=== PATIENT | female | born 1990 | race Caucasian/White ===

== ENCOUNTER 2021-01-24 08:57 | Outpatient (REF) | payer OTHER, SELFPAY ==
[2021-01-24 11:16] LABS: Glucose Urine UA NEG (NEG); Leukocyte Esterase Urine NEG (NEG); Nitrite Urine NEG (NEG); PH 6.5 (5.0-8.0); Specific Gravity - Urine <= 1.005 (1.005-1.025); Urine Blood NEG (NEG); Urine Ketones NEG (NEG); Urine Protein NEG (NEG-TRACE)
[2021-01-24 11:22] LABS: Hematocrit 43.1 % (37-47); Hemoglobin 13.8 g/dl (12.0-16.0); Mean Corpuscular Hemoglobin 28.9 pg (27.0-33.0); Mean Corpuscular Volume 90.2 fL (80-98); Platelet Count 289 X10*3/uL (160-400); Red Blood Count 4.78 X10*6/uL (4.20-5.50); Red Cell Distribution Width 13.6 % (11.0-16.0); White Blood Count 7.4 X10*3/uL (4.8-10.8)
[2021-01-24 11:41] LABS: Alanine Aminotransferase 14 U/L (0-31); Albumin Level 4.5 g/dL (3.5-5.0); Alkaline Phosphatase 98 U/L (39-117); Anion Gap 14 (12-20); Aspartate Amino Transferase 17 U/L (5-31); Bilirubin Total 0.6 mg/dL (0.0-1.0); Blood Urea Nitrogen 9 mg/dL (9-16); Calcium 9.4 mg/dL (8.4-10.2); Carbon Dioxide 27 mmol/L (22-29); Chloride 105 mmol/L (96-108); Cholesterol 190 mg/dL; Estimated Glomerular Filt Rate > 60; Glucose Fasting 84 mg/dL (60-99); HDL Cholesterol 88 mg/dL; LDL Cholesterol Calculated 94 mg/dl; Magnesium 2.3 mg/dL (1.6-2.6); Potassium 4.6 mmol/L (3.3-5.1); Sodium 141 mmol/L (135-145); Total Protein 7.1 g/dL (6.5-8.0); Triglycerides 44 mg/dL
[2021-01-24 11:46] LABS: Appearance Urine CLEAR; Color Urine YELLOW
[2021-01-24 11:52] LABS: WBC Urine 0-2 /HPF (0-4)
[2021-01-24 11:53] LABS: Bacteria Urine TRACE /LPF; RBC Urine 0 /HPF (0)
[2021-01-24 11:56] LABS: TSH reflex Free T4 0.89 uIU/mL (0.32-4.0)
== END 2021-01-24 08:58 | disposition home or self-care (01) ==
LOC: HO.HMGCLDS 08:57
PROVIDERS: Visit Provider Internal Medicine
DX: Z00.00 Encounter for general adult medical examination without abnormal findings (principal); F41.9 Anxiety disorder, unspecified
CPT/HCPCS: 36415; 80053; 80061; 81001; 83735; 84443; 85027

== ENCOUNTER 2021-07-11 13:28 | Outpatient (REF) | payer OTHER, SELFPAY ==
[2021-07-11 15:05] LABS: Binax Now Covid-19 Ag Negative (Negative)
[2021-07-11 15:06] LABS: Binax Internal Control QC Valid
== END 2021-07-11 13:29 | disposition home or self-care (01) ==
LOC: HO.HMGCLDS 13:28
PROVIDERS: Visit Provider Internal Medicine
DX: Z20.822 Contact with and (suspected) exposure to COVID-19 (principal)
CPT/HCPCS: 36415; C9803

== ENCOUNTER 2022-05-20 14:54 | Outpatient (REF) | payer OTHER, SELFPAY ==
[2022-05-20 16:26] LABS: MANUAL DIFF FLAG NO
[2022-05-20 16:33] LABS: Basophils Absolute Auto 0.1 X10*3/uL (0.0-0.2); Basophils Percent Auto 0.4 % (0-2); Eosinophils Percent Auto 0.2 % (0-4); Hematocrit 44.3 % (37.0-47.0); Hemoglobin 14.6 g/dl (12.0-16.0); Imm Gran Abs Auto 0.05 X10*3/uL (0.00-0.03); Imm Gran Pct Auto 0.4 % (0.0-0.4); Lymphocytes Absolute Auto 1.8 X10*3/uL (1.2-4.9); Lymphocytes Percent Auto 14.5 % (20-40); Mean Corpuscular Hemoglobin 29.6 pg (27.0-33.0); Mean Corpuscular Volume 89.7 fL (80.0-98.0); Mean Platelet Volume 9.8 fL (9.4-12.3); Monocytes Absolute Auto 0.7 X10*3/uL (0.1-1.2); Monocytes Percent Auto 5.6 % (2-11); Neutrophils Absolute Auto 9.9 x10*3/uL (2.0-8.3); Neutrophils Percent Auto 78.9 % (45-73); Platelet Count 332 X10*3/uL (160-400); Red Blood Count 4.94 X10*6/uL (4.20-5.50); Red Cell Distribution Width 13.3 % (11.0-16.0); White Blood Count 12.6 X10*3/uL (4.8-10.8)
[2022-05-20 17:08] LABS: Alanine Aminotransferase 17 U/L (0-31); Albumin Level 4.9 g/dL (3.5-5.0); Alkaline Phosphatase 93 U/L (39-117); Anion Gap 17 (12-20); Aspartate Amino Transferase 19 U/L (5-31); Bilirubin Total 0.6 mg/dL (0.0-1.0); Blood Urea Nitrogen 15 mg/dL (9-16); Calcium 10.3 mg/dL (8.4-10.2); Carbon Dioxide 26 mmol/L (22-29); Chloride 101 mmol/L (96-108); Estimated Glomerular Filt Rate > 60; Glucose Random 78 mg/dL (60-115); Potassium 4.5 mmol/L (3.3-5.1); Sodium 139 mmol/L (135-145); Total Protein 7.6 g/dL (6.5-8.0)
[2022-05-20 17:23] LABS: TSH reflex Free T4 1.04 uIU/mL (0.32-4.0)
== END 2022-05-20 14:55 | disposition home or self-care (01) ==
LOC: HO.HMGCLDS 14:54
PROVIDERS: PCP Internal Medicine; Visit Provider Internal Medicine
DX: F41.9 Anxiety disorder, unspecified (principal); R63.4 Abnormal weight loss
CPT/HCPCS: 36415; 80053; 84443; 85025

== ENCOUNTER 2023-06-04 11:07 | Outpatient (AMB) | payer OTHER, SELFPAY ==
[2023-06-04 11:09] VITALS: BP 96/62; PULSE 69; O2SAT 100; BMI 25.3
--- NOTE | 2023-06-04 11:09 | MHC.PC.OV ---
Vital Signs 06/04/23 11:09 Height 5 ft 5.4 in Weight 154 lb BMI 25.3 BP 96/62 Blood Pressure Location Lt brachial Position Sitting Pulse 69 Pulse Source Pulse Oximeter Pulse Oximetry (%) 100 Oxygen Delivery Method Room Air Intake Visit Reasons: medication follow up Intake Note: Pt is here today for a follow up visit on medication. Pt would like a referral to Licensed Nurse Practitioner and GI specialist. Allergies No Known Allergies Allergy (Verified 06/04/23 11:10) Medication List - Last Reconciled 06/04/23 by Miriam Barakat MD bupropion HCl 300 mg PO QAM clindamycin phosphate 1% topical DAILY hydrocortisone valerate 0.2% 1 appl topical DAILY PRN tretinoin 0.025% appl topical BEDTIME Tobacco use date assessed: 06/04/23 Dental Screening Dental Screen Date: 06/04/23 Did you have a dental visit in the last 12 months?: No Did you have a dental problem in the last 6 months where you did not have access to dental care?: No Was dental information given to patient?: Patient declined HPI medication follow up HPI Details Pt presents for the follow-up of chronic depression anxiety is stable on bupropion. Patient follows up with a counselor. She reports episode of intermittent diarrhea usually after eating breakfast increase bloating on and off for the last 2 years. Patient has been under increased stress started a new job in July and also from her about 3 years ago. Patient lives with her parents. Patient denies weight loss nausea vomiting hematochezia or abdominal pain. She saw side panel padder and has been eating well-balanced diet. Patient did not notice any correlation between type of food consumed and diarrhea. [facility] Medical History Annual physical exam Anxiety Normal Pap smear Palpitations Family History Mother Mental health disorder Maternal Aunt Mental health disorder Maternal Uncle Mental health disorder Social History Housing: House Alcohol intake: current Patient Tobacco Use Status: Never used Tobacco e-Cigarette/Vaping Use: Never Used Second Hand Smoke Exposure: No service: No Current occupational status: employed and student Current occupation: [employer] Current occupational exposures/hazards: No Cognitive needs: No Hearing needs: No Vision needs: No Questionnaire PHQ-9 Over the last 2 weeks, how often have you been bothered by any of the following problems? 1. Little interest or pleasure in doing things: several days 2. Feeling down, depressed, or hopeless: several days 3. Trouble falling or staying asleep, or sleeping too much: several days 4. Feeling tired or having little energy: not at all 5. Poor appetite or overeating: not at all 6. Feeling bad about yourself - or that you are a failure or have let yourself or your family down: several days 7. Trouble concentrating on things, such as reading the newspaper or watching television: several days 8. Moving or speaking so slowly that other people could have noticed. Or the opposite - being so fidgety or restless that you have been moving around a lot more than usual: several days 9. Thoughts that you would be better off or of hurting yourself in some way: not at all Total score: 6 Depression Screening Interpretation: Negative Depression Screening Done: Yes 54048 - PHQ-9 Billing: Yes Source: Developed by Drs. Nico Marmolejo, Oralia Botello, Pierce Alvarez and colleagues, with an educational stacia from [employer]. Thrive Questionnaire Date Thrive assessed: 06/04/23 I am a: Patient What is your living situation today?: I have a steady place to live Within the past 12 months, did the food you bought not last and you didn't have the money to get more?: Never true Within the past 12 months, did you worry whether your food would run out before you got money to buy more?: Never true Do you have trouble paying for medicines?: No Do you have trouble getting transportation to medical appointments?: No Do you have trouble paying your heating and electricity bill?: No Do you have trouble taking care of your child, family member or friend?: No Do you have trouble with day-to-day activities such as bathing, preparing meals, shopping, managing finances, etc.?: No Are you currently unemployed and looking for a job?: No Are you interested in more education?: No Please select the resources that you would like help with: None AUDIT C Alcohol Use Questionnaire (AUDIT-C) 1. How often do you have a drink containing alcohol?: 4 or more times a week 2. How many drinks containing alcohol do you have on a typical day when you are drinking?: 1 or 2 3. How often do you have six or more drinks on one occasion?: Never Total Score: 4 ANANT-7 AMB Questionnaire ANANT-7 Date ANANT - 7 assessed: 06/04/23 Feeling nervous, anxious, or on edge: 1 = Several days Not being able to stop or control worryin = Not at all Worrying too much about different things: 0 = Not at all Trouble relaxin = Several days Being so restless that it is hard to sit still: 0 = Not at all Becoming easily annoyed or irritable: 2 = More than half the days Feeling afraid as if something awful might happen: 1 = Several days Total ANANT-7 score (0-4 normal; 5-9 mild; 10-14 moderate; 15-21 severe): 5 Source: Developed by Drs. Nico Marmolejo, Oralia Botello, Pierce Alvarez and colleagues, with an educational stacia from [employer]. Review of Systems Const All systems reviewed & are unremarkable except as noted in HPI and below Reports no additional complaints Eyes Reports no additional complaints ENT Reports no additional complaints Card Reports no additional complaints Resp Reports no additional complaints GI Reports no additional complaints Reports no additional complaints Physical exam (Primary Care) Vital Signs: Last Vital Signs Pulse 69 06/04/23 11:09 BP 96/62 06/04/23 11:09 Pulse Ox 100 06/04/23 11:09 Oxygen Delivery Method Room Air 06/04/23 11:09 BMI result Body Mass Index 25.3 Tobacco/Smoking Status: Tobacco use Status Tobacco use date assessed 06/04/23 06/04/23 11:12 Patient Tobacco Use Status Never used Tobacco 06/04/23 11:12 e-Cigarette/Vaping Use Never Used 06/04/23 11:09 Depression Screening Interpretation: Negative Thrive Assessment: Date of Thrive Assessment Date Thrive assessed 01/25/22 06/04/23 11:09 Const General: no acute distress HENMT Head: Yes normal to inspection Ears: hearing grossly normal bilaterally Face and sinus: Yes normal facial exam Mouth: Normal oral and palatal mucosa present Throat: Yes posterior oropharynx normal Neck Neck: Yes supple Resp Effort & Inspection: normal respiratory effort Auscultation: clear to auscultation bilaterally Cardio Rhythm: regular rhythm Heart sounds: S1 normal heart sound present and S2 normal heart sound present GI Inspection: Yes normal to inspection Palpation (GI): Soft to palpation Percussion: Yes normal to percussion Auscultation: normal bowel sounds Assessment and Plan Assessment & Plan (1) Annual physical exam: Code(s): Z00.00 - Encounter for general adult medical examination without abnormal findings (2) Diarrhea: Code(s): R19.7 - Diarrhea, unspecified Plan: Patient was advised to avoid processed foods and artificial sweeteners and start food diary. Patient was advised to try probiotics and stress management discussed with the patient (3) Anxiety: Comment: f/u therapist Code(s): F41.9 - Anxiety disorder, unspecified Plan: Continue bupropion Orders: Orders Comprehensive [place]. Panel Fast 4 Months R19.7 - Diarrhea, unspecified, R63.4 - Abnormal weight loss, Z00.00 - Encounter for general adult medical examination without abnormal findings Complete Blood Count Auto Diff 4 Months R19.7 - Diarrhea, unspecified, R63.4 - Abnormal weight loss, Z00.00 - Encounter for general adult medical examination without abnormal findings Immunoglobulins,IgG IgA IgM 4 Months R19.7 - Diarrhea, unspecified, R63.4 - Abnormal weight loss, Z00.00 - Encounter for general adult medical examination without abnormal findings Transglutaminase IgA 4 Months R19.7 - Diarrhea, unspecified, R63.4 - Abnormal weight loss, Z00.00 - Encounter for general adult medical examination without abnormal findings TSH reflex Free T4 4 Months R19.7 - Diarrhea, unspecified, R63.4 - Abnormal weight loss, Z00.00 - Encounter for general adult medical examination without abnormal findings Lipid Panel 4 Months R19.7 - Diarrhea, unspecified, R63.4 - Abnormal weight loss, Z00.00 - Encounter for general adult medical examination without abnormal findings Medications: Refilled bupropion HCl 300 mg PO QAM 90 tabs 3RF Coding Level of Care Code Est Pt Level 4 (19081) Diagnoses Annual physical exam Z00.00 Diarrhea R19.7 Anxiety F41.9
== END 2023-06-04 12:34 | disposition home or self-care (01) ==
PROVIDERS: PCP Internal Medicine; Visit Provider Internal Medicine
DX: Z00.00 Encounter for general adult medical examination without abnormal findings (principal); R19.7 Diarrhea, unspecified; F41.9 Anxiety disorder, unspecified
CPT/HCPCS: 99214

== ENCOUNTER 2023-09-17 13:02 | Outpatient (AMB) | payer OTHER, SELFPAY ==
--- NOTE | 2023-09-17 13:07 | A.OFFPC_ITS ---
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 Required: No Allergies No Known Allergies Allergy (Verified 06/04/23 11:10) Medication List - Last Reconciled 09/17/23 by YESSICA Pearson- clindamycin phosphate 1% topical DAILY hydrocortisone valerate 0.2% 1 appl topical DAILY PRN tretinoin 0.025% appl topical BEDTIME Tobacco use date assessed: 09/17/23 Dental Screening Dental Screen Date: 09/17/23 Did you have a dental visit in the last 12 months?: Yes Did you have a dental problem in the last 6 months where you did not have access to dental care?: No Was dental information given to patient?: Patient has dentist HPI HPI Comments History of Present Illness Details 33-year-old female with generalized anxi ety disorder, acne Surgery: plastic surgery R eye as child 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 Took Wellbutrin in the past. Stopped as she wondered if this worsened GI sx. GI issues described as diarrhea, acid reflux., has vomiting episodes after consumption of alcohol. Denies bloody vomit or stools. Has never had any GI surgery. Has not seen GI specialist at this time. Did see Professor Of Poultry Science. Trialed off diary for 2 weeks w/ no improvement. Did not f/u as she felt overwhelmed. Off Wellbutrin since june. This was initially started for ANANT. [place] happy while on this. Admits some improvement in anxiety less impending doom. Never been on any other meds. ANANT - easily annoyed, hard time with tasks, things are worse in the AM. Thinks about bad things that could happen. Does not want to start any medication at this time [facility] Medical History (Updated 09/17/23 @ 13:53 by Dinah Moulton, [facility]) Palpitations Normal Pap smear Anxiety Annual physical exam Family History Mother Mental health disorder Maternal Aunt Mental health disorder Maternal Uncle Mental health disorder Social History Housing: House Alcohol intake: current Patient Tobacco Use Status: Never used Tobacco e-Cigarette/Vaping Use: Never Used Second Hand Smoke Exposure: No service: No Current occupational status: employed and student Current occupation: [employer] Current occupational exposures/hazards: No Cognitive needs: No Hearing needs: No Vision needs: No Questionnaire PHQ-9 Over the last 2 weeks, how often have you been bothered by any of the following problems? 1. Little interest or pleasure in doing things: several days 2. Feeling down, depressed, or hopeless: several days 3. Trouble falling or staying asleep, or sleeping too much: not at all 4. Feeling tired or having little energy: not at all 5. Poor appetite or overeating: not at all 6. Feeling bad about yourself - or that you are a failure or have let yourself or your family down: not at all 7. Trouble concentrating on things, such as reading the newspaper or watching television: not at all 8. Moving or speaking so slowly that other people could have noticed. Or the opposite - being so fidgety or restless that you have been moving around a lot more than usual: not at all 9. Thoughts that you would be better off or of hurting yourself in some way: not at all Total score: 2 Depression Screening Interpretation: Positive Depression Screening Follow-up: Declines treatment Depression Screening Done: Yes Source: Developed by Drs. Nico Marmolejo, Oralia Botello, Pierce Alvarez and colleagues, with an educational stacia from [employer]. Thrive Questionnaire Date Thrive assessed: 09/17/23 I am a: Patient What is your living situation today?: I have a steady place to live Within the past 12 months, did the food you bought not last and you didn't have the money to get more?: Never true Within the past 12 months, did you worry whether your food would run out before you got money to buy more?: Never true Do you have trouble paying for medicines?: No Do you have trouble getting transportation to medical appointments?: No Do you have trouble paying your heating and electricity bill?: No Do you have trouble taking care of your child, family member or friend?: No Do you have trouble with day-to-day activities such as bathing, preparing meals, shopping, managing finances, etc.?: No Are you currently unemployed and looking for a job?: No Are you interested in more education?: No Please select the resources that you would like help with: None THRIVE Score: 0 AUDIT C Alcohol Use Questionnaire (AUDIT-C) 1. How often do you have a drink containing alcohol?: 2-3 times a week 2. How many drinks containing alcohol do you have on a typical day when you are drinking?: 3 or 4 3. How often do you have six or more drinks on one occasion?: Never Total Score: 4 Score Reviewed/Action Taken: Yes ANANT-7 AMB Questionnaire ANANT-7 Date ANANT - 7 assessed: 06/04/23 Feeling nervous, anxious, or on edge: 1 = Several days Not being able to stop or control worryin = Several days Worrying too much about different things: 0 = Not at all Trouble relaxin = Not at all Being so restless that it is hard to sit still: 0 = Not at all Becoming easily annoyed or irritable: 0 = Not at all Feeling afraid as if something awful might happen: 0 = Not at all Total ANANT-7 score (0-4 normal; 5-9 mild; 10-14 moderate; 15-21 severe): 2 Source: Developed by Drs. Nico Marmolejo, Oralia Botello, Pierce Alvarez and colleagues, with an educational stacia from [employer]. ANANT-7 Assessment Billing ANANT-7 Assessment Tool: ANANT-7 Assessment 72438 Review of Systems Const All systems reviewed & are unremarkable except as noted in HPI and below Physical exam (Primary Care) Vital Signs: Last Vital Signs Pulse 75 09/17/23 13:08 BP 108/70 09/17/23 13:08 Pulse Ox 100 09/17/23 13:08 Oxygen Delivery Method Room Air 09/17/23 13:08 BMI result Body Mass Index 26.5 Tobacco/Smoking Status: Tobacco use Status Tobacco use date assessed 09/17/23 09/17/23 13:13 Patient Tobacco Use Status Never used Tobacco 09/17/23 13:07 e-Cigarette/Vaping Use Never Used 09/17/23 13:07 PHQ-9: PHQ-9 Score PHQ-9: Total score 2 09/17/23 13:35 Depression Screening Interpretation: Positive Depression Screening Follow-up: Declines treatment Thrive Assessment: Date of Thrive Assessment Date Thrive assessed 09/17/23 09/17/23 13:13 Const Other: AWAKE ALERT NAD SCLERAS NONICTERIC BILAT MMM RRR LS CTAB ABD SOFT, NONTENDER, BS X 4 QUADS, NO HEPATOSPLENOMEGALY MOOD AND AFFECT APPROPRIATE Assessment and Plan Assessment & Plan (1) Diarrhea: Comment: REFER TO GI FOR FURTHER EVAL AND TX WISHES TO SEE JOSE LONG AT [facility] ADVISED TO SEND ME MESSAGE ON PORTAL IF SHE CHANGES HER MIND Code(s): R19.7 - Diarrhea, unspecified Qualifiers: Diarrhea type: functional diarrhea Qualified Code(s): K59.1 - Functional diarrhea (2) ANANT (generalized anxiety disorder): Comment: ACTIVE W/ THERAPIST WAS ON WELLBUTRIN 300MG IN THE PAST, STOPPED TAKING 06/2023 DIDNT FIND IT TOO EFFECTIVE DECLINES MEDICATIONS AT THIS TIME Code(s): F41.1 - Generalized anxiety disorder Plan: Total time spent caring for the patient today was 45 minutes. This includes time spent before the visit reviewing the chart, time spent during the visit, and time spent after the visit on documentation This note is constructed using voice recognition software. While every effort has been made to ensure accuracy in panman, still errors may have been included Sometimes, these errors may affect the content or meaning of the given sentence . Plan RTO IN 3-4 MONTHS FOR CPE, SOONER NEEDED Orders: Referrals Gastroenterology Referral R19.7 - Diarrhea, unspecified Coding Level of Care Code Est Pt Level 5 (33176) Diagnoses Functional diarrhea K59.1 Diarrhea type: functional diarrhea ANANT (generalized anxiety disorder) F41.1 Additional Codes ANANT-7 Assessment Billing - ANANT-7 Assessment Tool: ANANT-7 Assessment 58005 ([id number])
[2023-09-17 13:08] VITALS: BP 108/70; PULSE 75; O2SAT 100; BMI 26.5
== END 2023-09-17 13:46 | disposition home or self-care (01) ==
PROVIDERS: PCP Nurse Practitioner Family; Visit Provider Nurse Practitioner Family
DX: K59.1 Functional diarrhea (principal); F41.1 Generalized anxiety disorder
CPT/HCPCS: 99215

== ENCOUNTER 2024-01-28 11:47 | Outpatient (AMB) | payer OTHER, SELFPAY ==
--- NOTE | 2024-01-28 11:49 | MHC.PC.OV ---
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 Is last menstrual period known: Yes Last menstrual period: 01/27/24 Post menopausal: No Patient : No Allergies No Known Allergies Allergy (Verified 01/28/24 11:59) Medication List - Last Reconciled 01/28/24 by Dinah Moulton, CHILD CARE GIVER- bupropion HCl XL (Wellbutrin XL) 300 mg PO QAM clindamycin phosphate 1% topical DAILY hydrocortisone valerate 0.2% 1 appl topical DAILY PRN tretinoin 0.025% appl topical BEDTIME Tobacco use date assessed: 01/28/24 Dental Screening Dental Screen Date: 01/28/24 Did you have a dental visit in the last 12 months?: No Did you have a dental problem in the last 6 months where you did not have access to dental care?: No Was dental information given to patient?: Patient declined HPI HPI Comments History of Present Illness Details 33-year-old female with generalized anxiety disorder, acne, functional chronic diarrhea Surgery: plastic surgery R eye as child 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 Derm [facility] 05/20/2022 normal CBC, normal CMP, normal TSH Here today for CPE For the GI referral: i dont have the consult note; she tells me she did not do the stool sample testing; she was given RX for acid reflux, however did not start as felt like it was related to taking too much NSAIDs which she has since reduced and this helped her. has been tracking fiber and feels she eats enough fiber. relates GI sx to stress. no worse since last visit. has no plans to f/u with GI @ this time. Started back on wellbutrin for her chronic worry/anxiety, On 300mg since October. Admits this has helped. feels happier. however cont w/ daily anxiety. discussed using other meds to help her control her anxiety. has never been on anything other than the wellbutrin, worries about wt gain with meds. denies self medication. Bruises really easily; in regards to taking NSAIDs; Vertigo started this summer. was told to tx w/ Advil. So takes for lots of different things. Again has reduced NSAID use and has had improvement in bruising. Eyes - overdue for eye exam, wears glasses. Does not need referral Skin - other than bruising, active w/ Derm. Reports UTD on skin ca screen. Sleep - ok Diet - could do better. EXAM: General: Well developed, well nourished, in no acute distress. Appears stated age. Head: Normocephalic, atraumatic. Eyes: Pupils are equal, round and reactive to light and accommodation. Conjunctivae are clear. Vision grossly normal. Ears: TMs clear AU, EACS WNL Nose: Patent, without discharge. Mouth: There are no ulcers or lesions noted. No inflammation, no post nasal drip, no plaques nor exudates. Neck: Supple, no adenopathy or thyromegaly. Lungs: Clear to auscultation bilaterally. No rales, rhonchi or wheeze noted. Good air flow in all glaser. Heart: Regular rate and rhythm. No murmurs, click, rubs or gallops are noted. Abdomen: Bowel sounds present in all quadrants. The abdomen is soft, nontender, with no masses or organomegaly noted. No hernias are noted. Musculoskeletal: Joints are nontender, without swelling, redness, or effusions. Range of motion is observed to be normal. Pulses: Peripheral pulses are equal and palpable bilaterally. Extremities: No clubbing, cyanosis nor edema is noted. Neurologic: Gait and station normal. Cranial Nerves 2-12 intact. Motor strength grossly symmetrical and intact. No sensory loss. Balance normal. Skin: No rashes, ulcers, or lesions noted. Turgor is good. Skin color is good. Hair and nails are without abnormalities. Psych: Normal eye contact, affect and mood appropriate, and normal interactions. Patient is alert and appropriate to context. Plan Screening labs today, all WNL: Plan start buspar 7.5 mg BID to help w/ anxiety. RTO 6-8 weeks to fu cont wellbutrin reduce NSAID use Tdap today cont care w specialists. [facility] Medical History (Updated 01/28/24 @ 13:43 by Dinah Moulton, [facility]) Palpitations Normal Pap smear Anxiety Annual physical exam Family History Mother Mental health disorder Maternal Aunt Mental health disorder Maternal Uncle Mental health disorder Social History Housing: House Alcohol intake: current Patient Tobacco Use Status: Never used Tobacco e-Cigarette/Vaping Use: Never Used Second Hand Smoke Exposure: No service: No Current occupational status: employed and student Current occupation: [employer] Current occupational exposures/hazards: No Cognitive needs: No Hearing needs: No Vision needs: No Female Reproductive History Menstrual Date of last menstrual period: 01/27/24 Questionnaire PHQ-9 Over the last 2 weeks, how often have you been bothered by any of the following problems? 1. Little interest or pleasure in doing things: several days 2. Feeling down, depressed, or hopeless: not at all 3. Trouble falling or staying asleep, or sleeping too much: not at all 4. Feeling tired or having little energy: not at all 5. Poor appetite or overeating: several days 6. Feeling bad about yourself - or that you are a failure or have let yourself or your family down: several days 7. Trouble concentrating on things, such as reading the newspaper or watching television: nearly every day 8. Moving or speaking so slowly that other people could have noticed. Or the opposite - being so fidgety or restless that you have been moving around a lot more than usual: several days 9. Thoughts that you would be better off or of hurting yourself in some way: not at all Total score: 7 Depression Screening Interpretation: Positive Depression Screening Follow-up: Existing condition and In treatment Depression Screening Done: Yes 04156 - PHQ-9 Billing: Yes Source: Developed by Drs. Nico L. JaleelOralia soto, Pierce Alvarez and colleagues, with an educational stacia from [employer]. Thrive Questionnaire Date Thrive assessed: 01/28/24 I am a: Patient What is your living situation today?: I have a steady place to live Within the past 12 months, did the food you bought not last and you didn't have the money to get more?: Never true Within the past 12 months, did you worry whether your food would run out before you got money to buy more?: Never true Do you have trouble paying for medicines?: No Do you have trouble getting transportation to medical appointments?: No Do you have trouble paying your heating and electricity bill?: No Do you have trouble taking care of your child, family member or friend?: No Do you have trouble with day-to-day activities such as bathing, preparing meals, shopping, managing finances, etc.?: No Are you currently unemployed and looking for a job?: No Are you interested in more education?: No Please select the resources that you would like help with: None Currently or been in a relationship where the following occur: No concerns reported THRIVE Score: 0 AUDIT C Alcohol Use Questionnaire (AUDIT-C) 1. How often do you have a drink containing alcohol?: 4 or more times a week 2. How many drinks containing alcohol do you have on a typical day when you are drinking?: 3 or 4 3. How often do you have six or more drinks on one occasion?: Weekly Total Score: 8 Score Reviewed/Action Taken: Yes ANANT-7 AMB Questionnaire ANANT-7 Date ANANT - 7 assessed: 01/28/24 Feeling nervous, anxious, or on edge: 2 = More than half the days Not being able to stop or control worryin = Not at all Worrying too much about different things: 1 = Several days Trouble relaxin = Not at all Being so restless that it is hard to sit still: 0 = Not at all Becoming easily annoyed or irritable: 3 = Nearly every day Feeling afraid as if something awful might happen: 2 = More than half the days Total ANANT-7 score (0-4 normal; 5-9 mild; 10-14 moderate; 15-21 severe): 8 Source: Developed by Oralia Deal Kurt Kroenke and colleagues, with an educational stacia from [employer]. ANANT-7 Assessment Billing ANANT-7 Assessment Tool: ANANT-7 Assessment 54507 Physical exam (Primary Care) Vital Signs: Last Vital Signs Temp 97.5 F 01/28/24 11:54 Pulse 67 01/28/24 11:54 Resp 16 01/28/24 11:54 BP 102/72 01/28/24 11:54 Pulse Ox 100 01/28/24 11:54 Oxygen Delivery Method Room Air 01/28/24 11:54 BMI result Body Mass Index 27.1 BMI Assessment/Plan discussion: High BMI High, discussed plan: lifestyle Tobacco/Smoking Status: Tobacco use Status Tobacco use date assessed 01/28/24 01/28/24 12:01 Patient Tobacco Use Status Never used Tobacco 01/28/24 11:51 e-Cigarette/Vaping Use Never Used 01/28/24 11:51 PHQ-9: PHQ-9 Score PHQ-9: Total score 7 01/28/24 13:44 Depression Screening Interpretation: Positive Depression Screening Follow-up: Existing condition and In treatment Thrive Assessment: Date of Thrive Assessment Date Thrive assessed 01/28/24 01/28/24 12:04 Currently or been in a relationship where the following occur: No concerns reported Immunizations Boostrix Tdap 2.5 Lf unit-8 mcg-5 Lf/0.5 mL intramuscular syringe Performing Provider: HARLEY Pearson Performing Location[place] [facility] Administered by: Chrissy Bass RN on 01/28/24 12:52 Dose Route Admin Location Dispensed Lot Number Expiration Date [facility] Surgeon Partner 0.5 mL IM Left Deltoid 0.5 mL [id number] 02/12/26 [id number] Vindi VIS Given Date VIS Provided VIS Publication Date 01/28/24 Single Vaccine 21 Eligibility Eligibility Date Funding Source Not [facility] Eligible 01/28/24 Private Assessment and Plan Assessment & Plan (1) Encounter for general adult medical examination without abnormal findings: Code(s): Z00.00 - Encounter for general adult medical examination without abnormal findings (2) ANANT (generalized anxiety disorder): Comment: ACTIVE W/ THERAPIST Code(s): F41.1 - Generalized anxiety disorder (3) Laboratory exam ordered as part of routine general medical examination: Code(s): Z00.00 - Encounter for general adult medical examination without abnormal findings Orders: Orders Hemoglobin A1c Today F41.1 - Generalized anxiety disorder, Z00.00 - Encounter for general adult medical examination without abnormal findings IRON PROFILE Today F41.1 - Generalized anxiety disorder, Z00.00 - Encounter for general adult medical examination without abnormal findings LDL Cholesterol Direct Today F41.1 - Generalized anxiety disorder, Z00.00 - Encounter for general adult medical examination without abnormal findings TSH reflex Free T4 Today F41.1 - Generalized anxiety disorder, Z00.00 - Encounter for general adult medical examination without abnormal findings Complete Blood Count no Diff Today F41.1 - Generalized anxiety disorder, Z00.00 - Encounter for general adult medical examination without abnormal findings Ferritin Today F41.1 - Generalized anxiety disorder, Z00.00 - Encounter for general adult medical examination without abnormal findings TDaP Immunization Today Z23 - Encounter for immunization Comprehensive Met. Panel Today F41.1 - Generalized anxiety disorder, Z00.00 - Encounter for general adult medical examination without abnormal findings Vitamin B12 and Folate Today F41.1 - Generalized anxiety disorder, Z00.00 - Encounter for general adult medical examination without abnormal findings Medications: New buspirone 7.5 mg PO BID 60 tabs 2RF Patient Instructions: Health screenings for women You should visit your health care provider from time to time, even if you are healthy. The purpose of these visits is to: Screen for medical issues Assess your risk for future medical problems Encourage a healthy lifestyle Update vaccinations and other preventive care services Help you get to know your provider in case of an illness Information Even if you feel fine, you should still see your provider for regular checkups. These visits can help you avoid problems in the future. For example, the only way to find out if you have high blood pressure is to have it checked regularly. High blood sugar and high cholesterol levels also may not have any symptoms in the early stages. A simple blood test can check for these conditions. There are specific times when you should see your provider or receive specific health screenings. The [place] Preventive Services Task Force publishes a list of recommended screenings. Below are screening guidelines for women ages 18 to 39. BLOOD PRESSURE SCREENING Your blood pressure should be checked at least once every 3 to 5 years if: Your blood pressure is in the normal range (top number less than 120 mm Hg and bottom number less than 80 mm Hg) You don't have risk factors for high blood pressure Ask your provider if you need your blood pressure checked more often if: The top number is 120 to 129 mm Hg or the bottom number is 70 to 79 mm Hg You have diabetes, heart disease, kidney problems, are overweight, or have certain other health conditions You have a first-degree relative with high blood pressure You are Black You had high blood pressure during a If the top number is 130 mm Hg or greater or the bottom number is 80 mm Hg or greater, this is considered stage 1 hypertension. Schedule an appointment with your provider to learn how you can reduce your blood pressure. Watch for blood pressure screenings in your area. Ask your provider if you can stop in to have your blood pressure checked. BREAST CANCER SCREENING Experts do not agree about the benefits of breast self-exams in finding breast cancer or saving lives. Talk to your provider about what is best for you. A screening mammogram is not recommended for most women under age 40. Your provider may discuss and recommend mammograms, MRI scans, or ultrasounds if you have an increased risk for breast cancer, such as: A mother or sister who had breast cancer at a young age (most often starting screening earlier than the age the close relative was diagnosed) You carry a high-risk genetic marker CERVICAL CANCER SCREENING Cervical cancer screening should start at age 21 years unless your provider advises otherwise. After the first test: Women ages 21 through 29 should have a Pap test every 3 years. Exoprts do not agree on whether HPV testing is recommended for this age group. Women ages 30 through 65 should be screened with either a Pap test every 3 years or the HPV test every 5 years or both tests every 5 years (called cotesting ). Women who have been treated for precancer (cervical dysplasia) should continue to have Pap tests for 20 years after treatment or until age 65, whichever is longer. If you have had your uterus and cervix removed (total hysterectomy), and you have not been diagnosed with cervical cancer or precancer (high grade cervical neoplasia), you do not need cervical cancer screening. CHOLESTEROL SCREENING Cholesterol screening should begin at: Age 45 for women with no known risk factors for coronary heart disease Age 20 for women with known risk factors for coronary heart disease Repeat cholesterol screening should take place: Every 5 years for women with normal cholesterol levels More often if changes occur in lifestyle (including weight gain and diet) More often if you have diabetes, heart disease, kidney problems, or certain other conditions DIABETES SCREENING You should be screened for diabetes starting at age 35 and then repeated every 3 years if you have no risk factors for diabetes. Screening may need to start earlier and be repeated more often if you have other risk factors for diabetes, such as: You have a first degree relative with diabetes. You are overweight or have obesity. You have high blood pressure, prediabetes, or a history of heart disease. Screening for diabetes should be done if you are planning to become and you are overweight and have other risk factors such as high blood pressure. DENTAL EXAM Go to the dentist once or twice every year for an exam and cleaning. Your dentist will evaluate if you need more frequent visits. EYE EXAM Have an eye exam every 5 to 10 years before age 40. If you have vision problems, have an eye exam every 2 years or more often if recommended by your provider. You should have an eye exam that includes an examination of your retina (back of your eye) at least every year if you have diabetes. IMMUNIZATIONS Commonly needed vaccines include: Flu shot: get one every year. COVID-19 vaccine: ask your provider what is best for you. Tetanus-diphtheria and acellular pertussis (Tdap) vaccine: have one at or after age 19 as one of your tetanus-diphtheria vaccines if you did not receive it as an adolescent. Tetanus-diphtheria: have a booster (or Tdap) every 10 years. Varicella vaccine: receive 2 doses if you never had chickenpox or the varicella vaccine. Hepatitis B vaccine: receive 2, 3, or 4 doses, depending on your exact circumstances. Measles, mumps, and rubella (MMR) vaccine: receive 1 to 2 doses if you are not already immune to MMR. Your provider can tell you if you are immune. Ask your provider about the human papillomavirus (HPV) vaccine if: You have not received the HPV vaccine in the past You have not completed the full vaccine series (you should catch up on this shot) Ask your provider if you should receive other immunizations if you have certain health problems that increase your risk for some diseases such as pneumonia. INFECTIOUS DISEASE SCREENING Women who are sexually active should be screened for chlamydia and gonorrhea up until age 25. Women 25 years and older should be screened for chlamydia and gonorrhea if at high risk. Screening for hepatitis C: All adults ages 18 to 79 should get a one-time test for hepatitis C. people should be screened at every . Screening for human immunodeficiency virus (HIV): All people ages 15 to 65 should get a one-time test for HIV. Depending on your lifestyle and medical history, you may also need to be screened for infections such as syphilis and HIV, as well as other infections. PHYSICAL EXAM All adults should visit their provider from time to time, even if they are healthy. The purpose of these visits is to: Screen for disease Assess your risk of future medical problems Encourage a healthy lifestyle Update your vaccinations and other preventive care services Maintain a relationship with a provider in case of an illness Your height, weight, and BMI should be checked at every exam. During your exam, your provider may ask you about: Depression and anxiety Diet and exercise Alcohol and tobacco use Safety issues, such as using seat belts, smoke detectors, and intimate partner violence Your medicines and risk for interactions SKIN SELF-EXAM Your provider may check your skin for signs of skin cancer, especially if you're at high risk, such as if you: Have had skin cancer before Have close relatives with skin cancer Have a weakened immune system OTHER SCREENING Talk with your provider about colon cancer screening if you have a strong family history of colon cancer or polyps, or if you have had inflammatory bowel disease or polyps yourself. Routine bone density screening of women under 40 is not recommended. Coding Level of Care Code Est Pt Prev Care 18-39y(84279) Diagnoses Encounter for general adult medical examination without abnormal findings Z00.00 ANANT (generalized anxiety disorder) F41.1 Laboratory exam ordered as part of routine general medical examination Z00.00 Additional Codes ANANT-7 Assessment Billing - ANANT-7 Assessment Tool: ANANT-7 Assessment 17745 ([id number])
[2024-01-28 11:54] VITALS: BP 102/72; PULSE 67; RESP 16; TEMP 36.4; O2SAT 100; BMI 27.1
== END 2024-01-28 12:50 | disposition home or self-care (01) ==
PROVIDERS: PCP Nurse Practitioner Family; Visit Provider Nurse Practitioner Family
DX: Z00.00 Encounter for general adult medical examination without abnormal findings (principal); F41.1 Generalized anxiety disorder; Z23 Encounter for immunization
CPT/HCPCS: 90471; 90715; 99395

== ENCOUNTER 2024-01-28 13:00 | Outpatient (REF) | payer OTHER, SELFPAY ==
[2024-01-28 14:52] LABS: Hematocrit 42.5 % (37.0-47.0); Hemoglobin 14.4 g/dl (12.0-16.0); Mean Corpuscular HGB Conc 33.9 g/dl (31.0-35.0); Mean Corpuscular Hemoglobin 30.6 pg (27.0-33.0); Mean Corpuscular Volume 90.4 fL (80.0-98.0); Mean Platelet Volume 9.8 fL (9.4-12.3); Platelet Count 307 X10*3/uL (160-400); Red Cell Distribution Width 13.1 % (11.0-16.0); White Blood Count 6.5 X10*3/uL (4.8-10.8)
[2024-01-28 15:01] LABS: Estimated Average Glucose 88 mg/dL; Hemoglobin A1c % 4.7 % (<6.0)
[2024-01-28 15:44] LABS: Alanine Aminotransferase 18 U/L (0-31); Albumin Level 4.7 g/dL (3.5-5.0); Alkaline Phosphatase 100 U/L (39-117); Anion Gap 16 (12-20); Aspartate Amino Transferase 19 U/L (5-31); Bilirubin Total 0.7 mg/dL (0.0-1.0); Blood Urea Nitrogen 14 mg/dL (9-16); Calcium 9.8 mg/dL (8.4-10.2); Carbon Dioxide 24 mmol/L (22-29); Chloride 105 mmol/L (96-108); Estimated Glomerular Filt Rate > 60; Glucose Random 81 mg/dL (60-115); Iron 146 mcg/dL (30-160); Percent Iron Saturation 44 % (15-50); Potassium 3.6 mmol/L (3.3-5.1); Sodium 141 mmol/L (135-145); Total Iron Binding Capacity 333 mcg/dL (228-428); Total Protein 7.3 g/dL (6.5-8.0); Unsaturated Iron Binding 187 ug/dL
[2024-01-28 15:58] LABS: Ferritin 31 ng/mL (10-122); TSH reflex Free T4 1.01 uIU/mL (0.32-4.0)
[2024-01-28 16:07] LABS: Folate 11.1 ng/mL (> or = 4.0); Vitamin B12 440 pg/mL (200-900)
[2024-01-29 11:54] LABS: LDL Cholesterol Direct 80 mg/dL (<100)
== END 2024-01-28 13:01 | disposition home or self-care (01) ==
LOC: HO.WFDLDS 13:00
PROVIDERS: Visit Provider Nurse Practitioner Family
DX: Z00.00 Encounter for general adult medical examination without abnormal findings (principal); F41.1 Generalized anxiety disorder
CPT/HCPCS: 36415; 80053; 82607; 82728; 82746; 83036; 83540; 83721; 84443; 85027

== ENCOUNTER 2024-03-16 09:56 | Outpatient (AMB) | payer OTHER, SELFPAY ==
--- NOTE | 2024-03-16 09:57 | A.OFFPC_ITS ---
Vital Signs 03/16/24 10:00 03/16/24 10:34 Height 5 ft 4 in Weight 167 lb 4 oz BMI 28.7 BP 118/68 Blood Pressure Location Rt brachial Position Sitting Respiration 15 Pulse 100 80 Pulse Source Pulse Oximeter Auscultation Pulse Oximetry (%) 98 Oxygen Delivery Method Room Air Intake Visit Reasons: 6-8 weeks 30 min fu BUSPAR Intake Note: follow up on meds Allergies No Known Allergies Allergy (Verified 03/16/24 10:05) Medication List - Last Reconciled 03/16/24 by Dinah Moulton, GSE MECHANIC- bupropion HCl XL (Wellbutrin XL) 300 mg PO QAM buspirone 7.5 mg PO BID clindamycin phosphate 1% topical DAILY hydrocortisone valerate 0.2% 1 appl topical DAILY PRN tretinoin 0.025% appl topical BEDTIME Tobacco use date assessed: 03/16/24 Dental Screening Dental Screen Date: 03/16/24 Did you have a dental visit in the last 12 months?: Yes Did you have a dental problem in the last 6 months where you did not have access to dental care?: No Was dental information given to patient?: Patient has dentist HPI HPI Comments History of Present Illness Details 33-year-old female with generalized anxi ety disorder, acne, functional chronic diarrhea Here today to fu on start of Buspar 7.5 mg po BID Feb/Mar are not good months for her, PTSD from past. Summer was good until February. Feb was not as busy, so lead her to think about different things. Taking each morning but forgets to take at night. On the days she takes twice per day does not see a difference in anxiety sx. Feels a litte more chill when with people. yesterday felt anxious; no trigger. on edge . Did positive affirmations to help control the anxiety. Cont to take wellbutrin. Wonders if she has aDHD, always thinking about different things, mind going in different places. Adult ASRS-v1 was done today, showed scattered results not c/w ADHD. Did restart counseling, has had 2 sessions, helpful so far. Exam: Awake, alert NAD RRR LS CTAB Mood and affect appropriate Plan Cont wellbutrin 300mg. Increase buspirone from 7.5mg po BID to 15mg QD. USe 7.5 PRN for breakthrough anxiety Cont counseling RTO in 6-8 weeks to fu, sooner as needed. Could consider increasing Wellbutrin at next OV to help w the inattentive sx she has. This note is constructed using voice recognition software. While every effort has been made to ensure accuracy in mill beam fitter, still errors may have been included Sometimes, these errors may affect the content or meaning of the given sentence . Total time spent caring for the patient today was 30 minutes. This includes time spent before the visit reviewing the chart, time spent during the visit, and time spent after the visit on documentation [facility] Medical History (Updated 01/28/24 @ 13:43 by Dinah Moulton, [facility]) Palpitations Normal Pap smear Anxiety Annual physical exam Family History Mother Mental health disorder Maternal Aunt Mental health disorder Maternal Uncle Mental health disorder Social History Housing: House Alcohol intake: current Patient Tobacco Use Status: Never used Tobacco e-Cigarette/Vaping Use: Never Used Second Hand Smoke Exposure: No service: No Current occupational status: employed and student Current occupation: [employer] Current occupational exposures/hazards: No Cognitive needs: No Hearing needs: No Vision needs: No Questionnaire PHQ-9 Over the last 2 weeks, how often have you been bothered by any of the following problems? 1. Little interest or pleasure in doing things: not at all 2. Feeling down, depressed, or hopeless: not at all 3. Trouble falling or staying asleep, or sleeping too much: not at all 4. Feeling tired or having little energy: not at all 5. Poor appetite or overeating: not at all 6. Feeling bad about yourself - or that you are a failure or have let yourself or your family down: several days 7. Trouble concentrating on things, such as reading the newspaper or watching television: nearly every day 8. Moving or speaking so slowly that other people could have noticed. Or the opposite - being so fidgety or restless that you have been moving around a lot more than usual: not at all 9. Thoughts that you would be better off or of hurting yourself in some way: not at all Total score: 4 82132 - PHQ-9 [place]: Yes Source: Developed by Drs. Nico Marmolejo, Pierce Lauren and colleagues, with an educational stacia from [employer]. Thrive Questionnaire Date Thrive assessed: 03/16/24 I am a: Patient What is your living situation today?: I have a steady place to live Within the past 12 months, did the food you bought not last and you didn't have the money to get more?: Never true Within the past 12 months, did you worry whether your food would run out before you got money to buy more?: Never true Do you have trouble paying for medicines?: No Do you have trouble getting transportation to medical appointments?: No Do you have trouble paying your heating and electricity bill?: No Do you have trouble taking care of your child, family member or friend?: No Do you have trouble with day-to-day activities such as bathing, preparing meals, shopping, managing finances, etc.?: No Are you currently unemployed and looking for a job?: No Are you interested in more education?: No Please select the resources that you would like help with: None THRIVE Score: 0 ANANT-7 AMB Questionnaire ANANT-7 Date ANANT - 7 assessed: 03/16/24 Feeling nervous, anxious, or on edge: 3 = Nearly every day Not being able to stop or control worryin = Not at all Worrying too much about different things: 0 = Not at all Trouble relaxin = Several days Being so restless that it is hard to sit still: 1 = Several days Becoming easily annoyed or irritable: 3 = Nearly every day Feeling afraid as if something awful might happen: 2 = More than half the days Total ANANT-7 score (0-4 normal; 5-9 mild; 10-14 moderate; 15-21 severe): 10 Source: Developed by Drs. Nico Marmolejo, Pierce Lauren and colleagues, with an educational stacia from [employer]. ANANT-7 Assessment Billing ANANT-7 Assessment Tool: ANANT-7 Assessment 20251 Physical exam (Primary Care) Vital Signs: Last Vital Signs Pulse 100 03/16/24 10:00 Resp 15 03/16/24 10:00 BP 118/68 03/16/24 10:00 Pulse Ox 98 03/16/24 10:00 Oxygen Delivery Method Room Air 03/16/24 10:00 BMI result Body Mass Index 28.7 Tobacco/Smoking Status: Tobacco use Status Tobacco use date assessed 01/28/24 01/28/24 12:01 Patient Tobacco Use Status Never used Tobacco 01/28/24 11:51 e-Cigarette/Vaping Use Never Used 01/28/24 11:51 Thrive Assessment: Date of Thrive Assessment Date Thrive assessed 01/28/24 01/28/24 12:04 Assessment and Plan Assessment & Plan (1) ANANT (generalized anxiety disorder): Comment: ACTIVE W/ THERAPIST Code(s): F41.1 - Generalized anxiety disorder (2) Inattention: Code(s): R41.840 - Attention and concentration deficit Medications: New buspirone 15 mg PO ONCE 90 tabs 0RF Coding Level of Care Code Est Pt Level 4 (43648) Diagnoses ANANT (generalized anxiety disorder) F41.1 Inattention R41.840 Additional Codes ANANT-7 Assessment Billing - ANANT-7 Assessment Tool: ANANT-7 Assessment 71877 ([id number])
[2024-03-16 10:00] VITALS: BP 118/68; PULSE 100; RESP 15; O2SAT 98; BMI 28.7
[2024-03-16 10:34] VITALS: PULSE 80
== END 2024-03-16 10:25 | disposition home or self-care (01) ==
PROVIDERS: PCP Nurse Practitioner Family; Visit Provider Nurse Practitioner Family
DX: R41.840 Attention and concentration deficit (principal); F41.1 Generalized anxiety disorder
CPT/HCPCS: 96127; 99214

== ENCOUNTER 2024-03-26 13:35 | Outpatient (AMB) | payer OTHER, SELFPAY ==
--- NOTE | 2024-03-26 13:31 | A.OFFPC_ITS ---
Vital Signs 03/26/24 15:51 Pulse 88 Pulse Source Pulse Oximeter Temp 98.2 F Temp Source Temporal Artery Scan Pulse Oximetry (%) 98 Oxygen Delivery Method Room Air Intake Visit Reasons: Sore throat, Congestion, easily winded Intake Note: Sore throat, congestion, easily winded. Allergies No Known Allergies Allergy (Verified 03/26/24 15:51) Medication List - Last Reconciled 03/26/24 by Dinah Moulton, SENIOR MERCHANDISER- bupropion HCl XL (Wellbutrin XL) 300 mg PO QAM buspirone 15 mg PO ONCE buspirone 7.5 mg PO BID clindamycin phosphate 1% topical DAILY hydrocortisone valerate 0.2% 1 appl topical DAILY PRN tretinoin 0.025% appl topical BEDTIME Tobacco use date assessed: 03/16/24 Dental Screening Dental Screen Date: 03/16/24 HPI HPI Comments History of Present Illness Details Telehealth visit for this 33 y/o F with c/o URI Friday started to feel like she sick woke up feeling very tired, winded easily, sore throat and ears feeling full today has more energy, her throat feels better along with her ears, but now having chest congested with cough and nasal congestion To treat her symptoms she has been using Mucinex, DayQuil, zinc and elderberry Was able to check VS at the time of the visit T 98.2, 02 98% 86 bpm When asked about exposures, she was around 1 friend who is now COVID + on Friday, other than that no known sick contacts Home COVID test negative yesterday Has a hx of cold induced asthma requiring inhalers in the past. She is speaking in full sentences, no cough or audible wheezing was able to climb stairs while on the phone w/o becoming winded alert and oriented Plan: Continue Mucinex. I have sent in a prescription for albuterol to use as needed along with QVAR. Advised to rinse mouth after using QVAR. Okay to continue zinc and elderBerry. Advised to avoid Sudafed. Educated about the increased heart rate and anxiety symptoms that can be brought on by the albuterol. Reports that she has taken this in the past and tolerated it fine. Educated on reasons to return to the office or seek additional care. [facility] Medical History (Updated 03/26/24 @ 16:12 by Dinah Moulton, [facility]) Palpitations Normal Pap smear Anxiety Annual physical exam Family History Mother Mental health disorder Maternal Aunt Mental health disorder Maternal Uncle Mental health disorder Social History Housing: House Alcohol intake: current Patient Tobacco Use Status: Never used Tobacco e-Cigarette/Vaping Use: Never Used Second Hand Smoke Exposure: No service: No Current occupational status: employed and student Current occupation: [employer] Current occupational exposures/hazards: No Cognitive needs: No Hearing needs: No Vision needs: No Questionnaire Thrive Questionnaire Date Thrive assessed: 03/16/24 ANANT-7 AMB Questionnaire ANANT-7 Date ANANT - 7 assessed: 03/16/24 Source: Developed by Drs. Nico Marmolejo, Oralia Botello, Pierce Alvarez and colleagues, with an educational stacia from [employer]. Physical exam (Primary Care) Vital Signs: Last Vital Signs Temp 98.2 F 03/26/24 15:51 Pulse 88 03/26/24 15:51 Pulse Ox 98 03/26/24 15:51 Oxygen Delivery Method Room Air 03/26/24 15:51 Tobacco/Smoking Status: Tobacco use Status Tobacco use date assessed 03/16/24 03/26/24 13:34 Patient Tobacco Use Status Never used Tobacco 03/26/24 13:34 e-Cigarette/Vaping Use Never Used 03/26/24 13:34 Thrive Assessment: Date of Thrive Assessment Date Thrive assessed 03/16/24 03/26/24 13:34 Telehealth Telehealth Telehealth Platform: Telephone Location of provider rendering services: practice address Location of patient: address on file Patient Identification confirmed using: Name, : Yes Telehealth method: voice only Patient verbally consented to treatment: Yes Patient verbally consented to billing insurance company: Yes Patient informed of any privacy concerns related to visit: Yes Minutes spent on Phone/Video with Pt.: 11 Assessment and Plan Assessment & Plan (1) Viral respiratory illness: Code(s): J98.8 - Other specified respiratory disorders; B97.89 - Other viral agents as the cause of diseases classified elsewhere (2) Cold-induced asthma: Code(s): J45.909 - Unspecified asthma, uncomplicated Qualifiers: Asthma severity: mild Asthma persistence: intermittent Asthma complication type: uncomplicated Qualified Code(s): J45.20 - Mild intermittent asthma, uncomplicated Medications: New albuterol sulfate 90 mcg/actuation 2 puffs inhalation Q4-6H PRN 8.5 grams 0RF shortness of breath or wheezing 30 days beclomethasone dipropionate 40 mcg/actuation (Qvar RediHaler) 1 inh inhalation Q12H 10.6 grams 0RF Coding Level of Care Code Tele Est Pt Level 2 (00639) Diagnoses Viral respiratory illness J98.8; B97.89 Mild intermittent cold-induced asthma without complication J45.20 Asthma severity: mild Asthma persistence: intermittent Asthma complication type: uncomplicated
[2024-03-26 15:51] VITALS: PULSE 88; TEMP 36.8; O2SAT 98
== END 2024-03-26 16:11 | disposition home or self-care (01) ==
LOC: HO.HMCFM 13:35
PROVIDERS: PCP Nurse Practitioner Family; Visit Provider Nurse Practitioner Family
DX: J98.8 Other specified respiratory disorders (principal); B97.89 Other viral agents as the cause of diseases classified elsewhere; J45.20 Mild intermittent asthma, uncomplicated

== ENCOUNTER → 2024-03-26 13:35 | Outpatient (BNVA) | payer OTHER, SELFPAY | PROVIDERS: PCP Nurse Practitioner Family; Visit Provider Nurse Practitioner Family ==

== ENCOUNTER 2024-06-07 16:13 | Outpatient (AMB) | payer OTHER, SELFPAY ==
--- NOTE | 2024-06-07 16:19 | A.OFFPC_ITS ---
Intake Visit Reasons: 6-8 weeks fu on buspar increase Allergies No Known Allergies Allergy (Verified 06/07/24 16:20) Medication List - Last Reconciled 06/07/24 by Dinah Moulton, LIFE ENRICHMENT SPECIALIST- albuterol sulfate 90 mcg/actuation 2 puffs inhalation Q4-6H PRN 30 days beclomethasone dipropionate 40 mcg/actuation (Qvar RediHaler) 1 inh inhalation Q12H bupropion HCl XL (Wellbutrin XL) 300 mg PO QAM buspirone 7.5 mg PO DIRECTED clindamycin phosphate 1% topical DAILY hydrocortisone valerate 0.2% 1 appl topical DAILY PRN tretinoin 0.025% appl topical BEDTIME Tobacco use date assessed: 03/16/24 Dental Screening Dental Screen Date: 03/16/24 HPI HPI Comments History of Present Illness Details 33-year-old female with generalized anxi ety disorder, acne, functional chronic diarrhea Telehealth visit today to follow up on generalized anxiety disorder and major depressive disorder. Since last office visit she has been taking buspirone 15 mg daily in the morning and using 7.5 mg as needed for breakthrough anxiety symptoms. She reports that the breakthrough use has been very sparing however has felt like it has been effective. She continues to be in counseling and this is helpful. She does endorse some worsening depressive symptoms. Attributes that to this time of year, seasonal affective. She denies any SI or HI. Plan: Start Vitamin d3 [id number] IU as it was research and showing vitamin-D supplementation even with normal vitamin-D levels and those that suffer from seasonal affective disorder has been quite beneficial. Please purchase this [id number]. If this is not helpful,Can consider increasing Wellbutrin if needed Continue buspirone 50 mg daily with 7.5 mg as needed for breakthrough anxiety RTO 4-6 weeks to fu on ANANT, MDD, sooner PRN This note is constructed using voice recognition software. While every effort has been made to ensure accuracy in custom stock maker, still errors may have been included Sometimes, these errors may affect the content or meaning of the given sentence . Total time spent caring for the patient today was 15 minutes. This includes time spent before the visit reviewing the chart, time spent during the visit, and time spent after the visit on documentation [facility] Medical History (Updated 06/07/24 @ 16:31 by Dinah Moulton, [facility]) Palpitations Normal Pap smear Anxiety Annual physical exam Family History Mother Mental health disorder Maternal Aunt Mental health disorder Maternal Uncle Mental health disorder Social History Housing: House Alcohol intake: current Patient Tobacco Use Status: Never used Tobacco e-Cigarette/Vaping Use: Never Used Second Hand Smoke Exposure: No service: No Current occupational status: employed and student Current occupation: [employer] Current occupational exposures/hazards: No Cognitive needs: No Hearing needs: No Vision needs: No Questionnaire Thrive Questionnaire Date Thrive assessed: 03/16/24 ANANT-7 AMB Questionnaire ANANT-7 Date ANANT - 7 assessed: 03/16/24 Source: Developed by Drs. Nico Marmolejo, Oralia Botello, Pierce Alvarez and colleagues, with an educational stacia from [employer]. Physical exam (Primary Care) Tobacco/Smoking Status: Tobacco use Status Tobacco use date assessed 03/16/24 03/26/24 13:34 Patient Tobacco Use Status Never used Tobacco 03/26/24 13:34 e-Cigarette/Vaping Use Never Used 03/26/24 13:34 Thrive Assessment: Date of Thrive Assessment Date Thrive assessed 03/16/24 03/26/24 13:34 Telehealth Telehealth Telehealth Platform: [facility] Location of provider rendering services: practice address Location of patient: address on file Patient Identification confirmed using: Name, : Yes Telehealth method: voice only Patient verbally consented to treatment: Yes Patient verbally consented to billing insurance company: Yes Patient informed of any privacy concerns related to visit: Yes Minutes spent on Phone/Video with Pt.: 10 Coding Level of Care Code Tele Est Pt Level 2 (54462) Complex EM visit Add On G2211 Diagnoses ANANT (generalized anxiety disorder) F41.1 Seasonal affective disorder F33.8 Assessment & Plan Assessment & Plan (1) ANANT (generalized anxiety disorder): Comment: ACTIVE W/ THERAPIST Code(s): F41.1 - Generalized anxiety disorder Category: Medical (2) Seasonal affective disorder: Code(s): F33.8 - Other recurrent depressive disorders Category: Medical Plan . Medications: New bupropion HCl XL (Wellbutrin XL) 300 mg PO QAM 90 tabs 1RF Refilled buspirone 7.5 mg PO DIRECTED 120 tabs 2RF
== END 2024-06-07 16:31 | disposition home or self-care (01) ==
LOC: HO.HMCFM 16:13
PROVIDERS: PCP Nurse Practitioner Family; Visit Provider Nurse Practitioner Family
DX: F41.1 Generalized anxiety disorder (principal); F33.8 Other recurrent depressive disorders

== ENCOUNTER 2024-07-19 15:35 | Outpatient (AMB) | payer OTHER, SELFPAY ==
--- NOTE | 2024-07-19 15:38 | MHC.PC.OV ---
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: No Allergies No Known Allergies Allergy (Verified 07/19/24 16:04) Medication List - Last Reconciled 07/19/24 by Dinah Moulton, [facility]- albuterol sulfate 90 mcg/actuation 2 puffs inhalation Q4-6H PRN 30 days beclomethasone dipropionate 40 mcg/actuation (Qvar RediHaler) 1 inh inhalation Q12H bupropion HCl XL (Wellbutrin XL) 300 mg PO QAM buspirone 7.5 mg PO DIRECTED clindamycin phosphate 1% topical DAILY hydrocortisone valerate 0.2% 1 appl topical DAILY PRN tretinoin 0.025% appl topical BEDTIME Tobacco use date assessed: 03/16/24 Dental Screening Dental Screen Date: 03/16/24 HPI HPI Comments History of Present Illness Details 34-year-old female with generalized anxiety disorder, acne, functional chronic diarrhea, family hx of breast ca, family hx of BRCA + (Mom) Surgery: plastic surgery R eye as child 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 Rhett Murillo The patient is a 34-year-old female presenting with continued management and follow-up of Generalized Anxiety Disorder and Major Depressive Disorder. The patient has a history of seasonal affective symptoms, with worsening depression noted during winter months, for which she was advised to start vitamin D. The patient is prescribed buspirone 15 mg in the morning and an additional 7.5 mg as needed for anxiety, finding this regimen effective, though usage of as-needed doses has been infrequent. She is also maintained on bupropion 300 mg daily; however, she reports experiencing intermittent mild shakiness and sensations of low blood sugar if ingestion occurs after late breakfasts, potentially linked to bupropion?s mild stimulant effect. The patient also notes some improvement in symptoms likely related to increased daylight. Past anxiety was more pronounced during summer activities, with recent scores indicating mild anxiety and moderate depressive symptoms. The patient has also expressed concerns regarding irregular alcohol consumption patterns, characterized by increased weekend use, occasional weekday consumption, and a desire to reduce potential binge patterns observed significantly during social gatherings. Has episodes of vomiting after drinking certain etoh drinks and eating certain foods, she thinks this is related to sugar content but is not entirely sure. Physical Exam General: Awake, alert. No apparent distress Cardiovascular: Regular rate and rhythm Respiratory: Clear to auscultation bilaterally Psych: mood and affect appropriate Plan - Continue current buspirone and bupropion adjustments as tolerated; monitor for any increase in shakiness or stimulant-like effects. Cont w/ counseling - Encourage consistency with vitamin D intake to assess impact on seasonal depressive symptoms. - Discussed importance of reducing episodic alcohol consumption; monitor for any significant changes. - Consider allergy/immunology referral for suspected food sensitivities contributing to reported nausea/vomiting episodes after consumption of sugary alcoholic beverages. Check with insurance to see about coverage in [place]. Patient was informed and verbally consented to the use of an ambient scribe for clinic note documentation during this visit. Discussion Notes During the visit, we reviewed the patient's current medication regimen and its effects. We discussed the possible stimulating effect of buproprion and strategies to mitigate shakiness, possibly related to timing and intake with or without food. The patient has been adherent and responsive to therapy.. Alcohol consumption was an important discussion point, with the patient expressing a desire to reduce intake due to weekend binge patterns. We discussed potentially contributory factors for nausea/vomiting episodes post-alcohol consumption. I suggested consideration of a referral to allergy/immunology for further exploration of potential allergies, including to artificial sugars. Follow-ups were agreed upon with a potential interim check within three months if needed or symptomatic changes arise, with yearly wellness evaluations planned for January. Patient Instructions - Continue with prescribed buspirone and bupropion as directed. - Consistently take vitamin D to evaluate its effect on seasonal affective symptoms. - Reduce alcohol intake, particularly with items known to cause discomfort or concern. - Consider tracking intake, digestive, and emotional responses to identify patterns. - Schedule follow-up appointment in three months or sooner if symptoms worsen. - Reach out via portal messaging for any renewals or prescription concerns before running out. - Consider maintaining a log of symptoms, particularly post-alcohol consumption, for any future allergy evaluations. Total time spent caring for the patient today was 30 minutes. This includes time spent before the visit reviewing the chart, time spent during the visit, and time spent after the visit on documentation This note is constructed using voice recognition software. While every effort has been made to ensure accuracy in supervisor operations, still errors may have been included Sometimes, these errors may affect the content or meaning of the given sentence . [facility] Medical History (Updated 07/19/24 @ 17:01 by Dinah Moulton [facility]) Palpitations Normal Pap smear Anxiety Annual physical exam Family History Mother Mental health disorder Maternal Aunt Mental health disorder Maternal Uncle Mental health disorder Social History Housing: House Alcohol intake: current Patient Tobacco Use Status: Never used Tobacco e-Cigarette/Vaping Use: Never Used Second Hand Smoke Exposure: No service: No Current occupational status: employed and student Current occupation: [employer] Current occupational exposures/hazards: No Cognitive needs: No Hearing needs: No Vision needs: No Questionnaire PHQ-9 Over the last 2 weeks, how often have you been bothered by any of the following problems? 1. Little interest or pleasure in doing things: several days 2. Feeling down, depressed, or hopeless: several days 3. Trouble falling or staying asleep, or sleeping too much: more than half the days 4. Feeling tired or having little energy: more than half the days (feels unrelated to mood) 5. Poor appetite or overeating: not at all 6. Feeling bad about yourself - or that you are a failure or have let yourself or your family down: several days 7. Trouble concentrating on things, such as reading the newspaper or watching television: several days 8. Moving or speaking so slowly that other people could have noticed. Or the opposite - being so fidgety or restless that you have been moving around a lot more than usual: not at all 9. Thoughts that you would be better off or of hurting yourself in some way: not at all Total score: 8 Depression Screening Interpretation: Positive Depression Screening Follow-up: Existing condition and In treatment Depression Screening Done: Yes 61137 - PHQ-9 Billing: Patient declined-do not bill Source: Developed by Drs. Nico Marmolejo, Oralia Botello, Pierce Alvarez and colleagues, with an educational stacia from [employer]. Thrive Questionnaire Date Thrive assessed: 07/19/24 I am a: Patient What is your living situation today?: I have a steady place to live Within the past 12 months, did the food you bought not last and you didn't have the money to get more?: Never true Within the past 12 months, did you worry whether your food would run out before you got money to buy more?: Never true Do you have trouble paying for medicines?: No Do you have trouble getting transportation to medical appointments?: No Do you have trouble paying your heating and electricity bill?: No Do you have trouble taking care of your child, family member or friend?: No Do you have trouble with day-to-day activities such as bathing, preparing meals, shopping, managing finances, etc.?: No Are you currently unemployed and looking for a job?: Yes Are you interested in more education?: No Please select the resources that you would like help with: None Currently or been in a relationship where the following occur: I choose not to answer THRIVE Score: 0 AUDIT C Alcohol Use Questionnaire (AUDIT-C) 1. How often do you have a drink containing alcohol?: 4 or more times a week (every weekend and then 2-3 glasses/wine per night ) 2. How many drinks containing alcohol do you have on a typical day when you are drinking?: 3 or 4 3. How often do you have six or more drinks on one occasion?: Monthly Total Score: 7 Score Reviewed/Action Taken: Yes ANANT-7 AMB Questionnaire ANANT-7 Date ANANT - 7 assessed: 07/19/24 Feeling nervous, anxious, or on edge: 1 = Several days Not being able to stop or control worryin = More than half the days Worrying too much about different things: 1 = Several days Trouble relaxin = Several days Being so restless that it is hard to sit still: 1 = Several days Becoming easily annoyed or irritable: 1 = Several days Feeling afraid as if something awful might happen: 2 = More than half the days Total ANANT-7 score (0-4 normal; 5-9 mild; 10-14 moderate; 15-21 severe): 9 Source: Developed by Drs. Nico Marmolejo, Oralia Botello, Pierce Alvarez and colleagues, with an educational stacia from [employer]. ANANT-7 Assessment Billing ANANT-7 Assessment Tool: ANANT-7 Assessment 60883 Physical exam (Primary Care) Vital Signs: Last Vital Signs Pulse 74 07/19/24 15:41 Resp 12 07/19/24 15:41 BP 117/68 07/19/24 15:41 Pulse Ox 98 07/19/24 15:41 Oxygen Delivery Method Room Air 07/19/24 15:41 BMI result Body Mass Index 29.0 Tobacco/Smoking Status: Tobacco use Status Tobacco use date assessed 03/16/24 07/19/24 15:43 Patient Tobacco Use Status Never used Tobacco 07/19/24 15:43 e-Cigarette/Vaping Use Never Used 07/19/24 15:43 PHQ-9: PHQ-9 Score PHQ-9: Total score 8 07/19/24 15:57 Depression Screening Interpretation: Positive Depression Screening Follow-up: Existing condition and In treatment Thrive Assessment: Date of Thrive Assessment Date Thrive assessed 07/19/24 07/19/24 15:43 Currently or been in a relationship where the following occur: I choose not to answer Coding Level of Care Code Est Pt Level 4 (67507) Complex EM visit Add On G2211 Diagnoses Seasonal affective disorder F33.8 ANANT (generalized anxiety disorder) F41.1 Nausea and vomiting, unspecified vomiting type R11.2 Vomiting type: unspecified Nausea presence: with nausea Additional Codes ANANT-7 Assessment Billing - ANANT-7 Assessment Tool: ANANT-7 Assessment 04889 ([id number]) Assessment & Plan Assessment & Plan (1) Seasonal affective disorder: Code(s): F33.8 - Other recurrent depressive disorders Category: Medical (2) ANANT (generalized anxiety disorder): Comment: ACTIVE W/ THERAPIST Code(s): F41.1 - Generalized anxiety disorder Category: Medical (3) Vomiting: Code(s): R11.10 - Vomiting, unspecified Category: Medical Qualifiers: Vomiting type: unspecified Nausea presence: with nausea Qualified Code(s): R11.2 - Nausea with vomiting, unspecified Plan .
[2024-07-19 15:41] VITALS: BP 117/68; PULSE 74; RESP 12; O2SAT 98; BMI 29.0
== END 2024-07-19 16:17 | disposition home or self-care (01) ==
PROVIDERS: PCP Nurse Practitioner Family; Visit Provider Nurse Practitioner Family
DX: F33.8 Other recurrent depressive disorders (principal); F41.1 Generalized anxiety disorder; R11.2 Nausea with vomiting, unspecified

== ENCOUNTER → 2024-07-19 15:35 | Outpatient (BNVA) | payer OTHER, SELFPAY | PROVIDERS: PCP Nurse Practitioner Family; Visit Provider Nurse Practitioner Family | DX: F41.1 Generalized anxiety disorder (principal); F33.8 Other recurrent depressive disorders; R11.2 Nausea with vomiting, unspecified; R19.7 Diarrhea, unspecified | CPT/HCPCS: 96127; 99212 ==

== ENCOUNTER 2024-09-01 09:52 | Outpatient (AMB) | payer OTHER, SELFPAY ==
--- NOTE | 2024-09-01 10:03 | AM.OFFWIN_ITS ---
Intake Vital Signs 09/01/24 10:05 Weight 167 lb BP 120/84 Blood Pressure Location Lt brachial Position Sitting Pulse 65 Pulse Source Pulse Oximeter Temp 98.0 F Temp Source Oral Pulse Oximetry (%) 99 Oxygen Delivery Method Room Air Intake Visit Reasons: EP-sore throat Intake Note: Patient here for sore throat and ear pain that started yesterday. Patient Tobacco Use Status: Never used Tobacco Allergies No Known Allergies Allergy (Verified 09/01/24 10:05) Do you need a note to return to daycare/school/sports/work: No HPI HPI Comments History of Present Illness Details Presents with [address] She said worsening this am Advil helped but pain still present Feels swollen LN and ear pressure Pain level is rated as a 6/10 She denies fever/chills No cough, body aches, or fatigue [facility] Medical History (Updated 09/01/24 @ 10:25 by Kirstin Pierre PA-C) Palpitations Normal Pap smear Anxiety Annual physical exam Family History Mother Mental health disorder Maternal Aunt Mental health disorder Maternal Uncle Mental health disorder Social History Housing: House Alcohol intake: current Patient Tobacco Use Status: Never used Tobacco e-Cigarette/Vaping Use: Never Used Second Hand Smoke Exposure: No service: No Current occupational status: employed and student Current occupation: [employer] Current occupational exposures/hazards: No Cognitive needs: No Hearing needs: No Vision needs: No Review of Systems Const Denies chills and Denies fever(s) ENT Denies dizziness, Denies ear discharge, Reports otalgia (pressure), Denies nasal congestion, Denies nasal discharge, Denies sinus pain, Reports sore throat, Denies throat swelling and Denies tongue swelling Card Denies chest pain and Denies dyspnea Resp Denies cough and Denies dyspnea Musc Denies myalgias Neuro Denies dizziness Aller/Immun Denies throat swelling and Denies tongue swelling Physical Exam Vital Signs: Last Vital Signs Temp 98.0 F 09/01/24 10:05 Pulse 65 09/01/24 10:05 BP 120/84 09/01/24 10:05 Pulse Ox 99 09/01/24 10:05 Oxygen Delivery Method Room Air 09/01/24 10:05 General: Non-toxic, NAD. Speaking full sentences. Skin: Warm dry throughout Eye: EOMI HENT: Airway patent. Uvula midline. slight pharyngeal erythema without exudates or edema. No DINING CHAIR SEAT CUSHION TRIMMER. Bilateral canals clear. TM non-erythematous, non-bulging. No TM perforation or hemotympanum noted. Lymph: No lymphadenopathy Respiratory: CTA bilaterally. No wheezes, rales or rhonchi Cardiac: RRR. No murmur Neurology: Alert. No aphasia or facial droop. Gait without abnormality Psych: Good mood and affect Assessment & Plan Assessment & Plan (1) Pharyngitis: Code(s): J02.9 - Acute pharyngitis, unspecified Qualifiers: Pharyngitis/tonsillitis etiology: unspecified etiology Qualified Code(s): J02.9 - Acute pharyngitis, unspecified Plan: Patient seen and evaluated. Strep negative No DINING CHAIR SEAT CUSHION TRIMMER or exudates Increase fluids tylenol/motrin prn Patient gave verbal understanding and had no additional questions or concerns at time of discharge All questions answered Coding Level of Care Code Est Pt Level 3 (60791) Diagnoses Pharyngitis, unspecified etiology J02.9 Pharyngitis/tonsillitis etiology: unspecified etiology
[2024-09-01 10:05] VITALS: BP 120/84; PULSE 65; TEMP 36.7; O2SAT 99
== END 2024-09-01 10:50 | disposition home or self-care (01) ==
PROVIDERS: PCP Internal Medicine; Visit Provider Physician Assistant
DX: J02.9 Acute pharyngitis, unspecified (principal); Z13.9 Encounter for screening, unspecified

== ENCOUNTER → 2024-09-01 09:52 | Outpatient (BNVA) | payer OTHER, SELFPAY | PROVIDERS: PCP Nurse Practitioner Family | DX: J02.9 Acute pharyngitis, unspecified (principal) | CPT/HCPCS: 87880; 99212 ==

== ENCOUNTER 2024-09-08 10:28 | Outpatient (AMB) | payer OTHER, SELFPAY ==
--- NOTE | 2024-09-08 10:29 | MHC.PC.OV ---
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 Allergies No Known Allergies Allergy (Verified 09/08/24 10:30) Medication List - Last Reconciled 09/08/24 by Dinah Moulton, [address]- albuterol sulfate 90 mcg/actuation 2 puffs inhalation Q4-6H PRN 30 days beclomethasone dipropionate 40 mcg/actuation (Qvar RediHaler) 1 inh inhalation Q12H bupropion HCl XL (Wellbutrin XL) 300 mg PO QAM buspirone 15 mg PO DAILY clindamycin phosphate 1% topical DAILY hydrocortisone valerate 0.2% 1 appl topical DAILY PRN tretinoin 0.025% appl topical BEDTIME Tobacco use date assessed: 09/08/24 Dental Screening Dental Screen Date: 09/08/24 Did you have a dental visit in the last 12 months?: Yes Did you have a dental problem in the last 6 months where you did not have access to dental care?: No Was dental information given to patient?: Patient has dentist HPI HPI Comments History of Present Illness Details 34-year-old female here today with complaints of the sore throat that started 8 days ago. She was seen at the walk-in clinic with a negative strep test at that time. Supportive care recommended. The patient reports that she continues with a sore throat since onset. Reports that the throat looks bloody at times worse over the weekend. She denies any fever or chills. She does report her voice being hoarse mild ear pain more described as itchy sensation mild runny nose. No abdominal pain. She did have an episode of vomiting but that was relative to alcohol use on Friday. Denies any rash. Denies any exposure to others with similar symptoms. Using Tylenol and Advil to help pain. Denies trouble swallowing. Mild GERD sx. Exam: Awake alert NAD Sclera and conjunctiva clear bilat Nares patent, turbinates within normal limits, no sinus tenderness with palpation bilat TM intact and clear bilat MMM, pharynx posterior cobblestoning, mild erythema, no exudate uvula midline, shotty ac adentopahy bilat Results - Strep test: Negative today Discussion Notes During the conversation, we discussed the current complaints of a sore throat, postnasal drip, and acid reflux. I provided management options, including starting an acid reflux medication, omeprazole, and suggested trialing a nasal drying agent like ipratropium. We reviewed the importance of doses of omeprazole from other medications and food to ensure optimal absorption. I also advised against using menthol-based cough drops due to their potential to relax the lower esophageal sphincter and exacerbate reflux. We discussed dietary modifications to manage acid reflux, such as avoiding known triggers, carbonated beverages, and considering honey-based remedies as an alternative. I have prescribed omeprazole with a plan to reassess the effectiveness and symptom improvements in eight weeks. I advised close monitoring of symptoms and provided guidelines when to seek further medical attention. Assessment and Plan 1. Sore Throat: The presentation appears to be associated with postnasal drip or acid reflux. The plan includes addressing contributing factors with nasal drying agents and monitoring the effectiveness. 2. Postnasal Drip: Initiate treatment with a nasal drying agent, specifically ipratropium, to alleviate symptoms and assess the response before considering further action. 3. Acid Reflux: Prescribed omeprazole daily to address acid reflux, with instructions to optimize medication efficacy and avoid known dietary triggers. Patient Instructions - Begin taking omeprazole as directed, preferably in the morning, 30 minutes before food intake. - Use nasal drying agent, ipratropium, as prescribed. - Avoid known dietary triggers and use honey-based throat lozenges instead of menthol-based products. - Monitor symptoms and report any advancements or worsening such as fever or swallowing difficulties. RTO edu provided, update me via portal Consent Patient was informed and verbally consented to the use of an ambient scribe for clinic note documentation during this visit. Total time spent caring for the patient today was 30 minutes. This includes time spent before the visit reviewing the chart, time spent during the visit, and time spent after the visit on documentation, reviewing laboratory results, diagnostic imaging, medications, performing a medically necessary evaluation, counseling on diagnoses, care coordination, ordering appropriate tests, ordering appropriate medications, review of tests performed by other providers, reporting test results with the patient, communication with other healthcare providers. [facility] Medical History (Updated 09/08/24 @ 11:07 by Dinah Moulton, [facility]) Annual physical exam Anxiety Normal Pap smear Palpitations Family History Mother Mental health disorder Maternal Aunt Mental health disorder Maternal Uncle Mental health disorder Social History Housing: House Alcohol intake: current Patient Tobacco Use Status: Never used Tobacco e-Cigarette/Vaping Use: Never Used Second Hand Smoke Exposure: No service: No Current occupational status: employed and student Current occupation: [employer] Current occupational exposures/hazards: No Cognitive needs: No Hearing needs: No Vision needs: No Questionnaire PHQ-9 Over the last 2 weeks, how often have you been bothered by any of the following problems? 1. Little interest or pleasure in doing things: not at all 2. Feeling down, depressed, or hopeless: not at all 3. Trouble falling or staying asleep, or sleeping too much: not at all 4. Feeling tired or having little energy: not at all 5. Poor appetite or overeating: not at all 6. Feeling bad about yourself - or that you are a failure or have let yourself or your family down: not at all 7. Trouble concentrating on things, such as reading the newspaper or watching television: not at all 8. Moving or speaking so slowly that other people could have noticed. Or the opposite - being so fidgety or restless that you have been moving around a lot more than usual: not at all 9. Thoughts that you would be better off or of hurting yourself in some way: not at all Total score: 0 Depression Screening Interpretation: Negative Depression Screening Done: Yes 00760 - PHQ-9 Billing: Yes Source: Developed by Drs. Nico Marmolejo, Oralia Botello, Pierce Alvarez and colleagues, with an educational stacia from [employer]. Thrive Questionnaire Date Thrive assessed: 09/08/24 I am a: Patient What is your living situation today?: I have a steady place to live Within the past 12 months, did the food you bought not last and you didn't have the money to get more?: Never true Within the past 12 months, did you worry whether your food would run out before you got money to buy more?: Never true Do you have trouble paying for medicines?: No Do you have trouble getting transportation to medical appointments?: No Do you have trouble paying your heating and electricity bill?: No Do you have trouble taking care of your child, family member or friend?: No Do you have trouble with day-to-day activities such as bathing, preparing meals, shopping, managing finances, etc.?: No Are you currently unemployed and looking for a job?: Yes Are you interested in more education?: No Please select the resources that you would like help with: None Currently or been in a relationship where the following occur: I choose not to answer THRIVE Score: 0 AUDIT C Alcohol Use Questionnaire (AUDIT-C) 1. How often do you have a drink containing alcohol?: 4 or more times a week 2. How many drinks containing alcohol do you have on a typical day when you are drinking?: 3 or 4 3. How often do you have six or more drinks on one occasion?: Weekly Total Score: 8 Score Reviewed/Action Taken: Yes ANANT-7 AMB Questionnaire ANANT-7 Date ANANT - 7 assessed: 09/08/24 Feeling nervous, anxious, or on edge: 0 = Not at all Not being able to stop or control worryin = Not at all Worrying too much about different things: 0 = Not at all Trouble relaxin = Not at all Being so restless that it is hard to sit still: 0 = Not at all Becoming easily annoyed or irritable: 0 = Not at all Feeling afraid as if something awful might happen: 0 = Not at all Total ANANT-7 score (0-4 normal; 5-9 mild; 10-14 moderate; 15-21 severe): 0 Source: Developed by Drs. Nico Marmolejo, Oralia Botello, Pierce Alvarez and colleagues, with an educational stacia from [employer]. ANANT-7 Assessment Billing ANANT-7 Assessment Tool: ANANT-7 Assessment 39670 Physical exam (Primary Care) Vital Signs: Last Vital Signs Temp 96.9 F 09/08/24 10:33 Pulse 52 09/08/24 10:33 Resp 12 03/05/25 10:33 BP 98/67 09/08/24 10:33 Pulse Ox 99 09/08/24 10:33 Oxygen Delivery Method Room Air 09/08/24 10:33 BMI result Body Mass Index 29.0 Tobacco/Smoking Status: Tobacco use Status Tobacco use date assessed 09/08/24 09/08/24 10:31 Patient Tobacco Use Status Never used Tobacco 09/08/24 10:31 e-Cigarette/Vaping Use Never Used 09/08/24 10:31 PHQ-9: PHQ-9 Score PHQ-9: Total score 0 09/08/24 10:48 Depression Screening Interpretation: Negative Thrive Assessment: Date of Thrive Assessment Date Thrive assessed 09/08/24 09/08/24 10:31 Currently or been in a relationship where the following occur: I choose not to answer Results AMB Rapid Strep AMB Rapid Strep Negative Last Edit by Abhijeet Jones MA on 09/08/24 10:54 Results Reviewed Results Reviewed: Laboratory Last Values Strep Scn Rapid Clinic Negative 09/08/24 10:45 Coding Level of Care Code Est Pt Level 4 (95727) Complex EM visit Add On G2211 Diagnoses Pharyngitis, unspecified etiology J02.9 Pharyngitis/tonsillitis etiology: unspecified etiology Gastroesophageal reflux disease with esophagitis without hemorrhage K21.00 Esophagitis bleeding: without hemorrhage Post-nasal drip R09.82 Additional Codes ANANT-7 Assessment Billing - ANANT-7 Assessment Tool: ANANT-7 Assessment 02852 ([id number]) PHQ-9 - 08048 - PHQ-9 Billing: Yes ([id number]) Assessment & Plan Assessment & Plan (1) Pharyngitis: Code(s): J02.9 - Acute pharyngitis, unspecified Category: Medical Qualifiers: Pharyngitis/tonsillitis etiology: unspecified etiology Qualified Code(s): J02.9 - Acute pharyngitis, unspecified (2) GERD with esophagitis: Code(s): K21.00 - Gastro-esophageal reflux disease with esophagitis, without bleeding Category: Medical Qualifiers: Esophagitis bleeding: without hemorrhage Qualified Code(s): K21.00 - Gastro-esophageal reflux disease with esophagitis, without bleeding (3) Post-nasal drip: Code(s): R09.82 - Postnasal drip Category: Medical Plan: . Plan . Orders: Orders AMB Rapid Strep Screen Today Z13.9 - Encounter for screening, unspecified Medications: New omeprazole 20 mg PO DAILY 30 caps 1RF ipratropium bromide administer into each nostril 2 sprays intranasal BID 30 mL 1RF
[2024-09-08 10:33] VITALS: BP 98/67; PULSE 52; RESP 12; TEMP 36.1; O2SAT 99; BMI 29.0
== END 2024-09-08 11:07 | disposition home or self-care (01) ==
PROVIDERS: PCP Nurse Practitioner Family; Visit Provider Nurse Practitioner Family
DX: J02.9 Acute pharyngitis, unspecified (principal); K21.00 Gastro-esophageal reflux disease with esophagitis, without bleeding; R09.82 Postnasal drip; Z13.9 Encounter for screening, unspecified

== ENCOUNTER → 2024-09-08 10:28 | Outpatient (BNVA) | payer OTHER, SELFPAY | PROVIDERS: PCP Nurse Practitioner Family; Visit Provider Nurse Practitioner Family | DX: J02.9 Acute pharyngitis, unspecified (principal); K21.00 Gastro-esophageal reflux disease with esophagitis, without bleeding; R09.82 Postnasal drip | CPT/HCPCS: 87880; 96127; 99212 ==

== ENCOUNTER 2024-10-11 13:07 | Outpatient (AMB) | payer OTHER, SELFPAY ==
--- NOTE | 2024-10-11 13:09 | MHC.PC.OV ---
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: No Allergies No Known Allergies Allergy (Verified 10/11/24 13:23) Medication List - Last Reconciled 10/11/24 by Dinah Moulton, [facility]- albuterol sulfate 90 mcg/actuation 2 puffs inhalation Q4-6H PRN 30 days beclomethasone dipropionate 40 mcg/actuation (Qvar RediHaler) 1 inh inhalation Q12H bupropion HCl XL (Wellbutrin XL) 300 mg PO QAM buspirone 15 mg PO DAILY clindamycin phosphate 1% topical DAILY hydrocortisone valerate 0.2% 1 appl topical DAILY PRN ipratropium bromide 2 sprays intranasal BID omeprazole 20 mg PO DAILY tretinoin 0.025% appl topical BEDTIME Tobacco use date assessed: 10/11/24 Dental Screening Dental Screen Date: 10/11/24 Did you have a dental visit in the last 12 months?: Yes Did you have a dental problem in the last 6 months where you did not have access to dental care?: No Was dental information given to patient?: Patient has dentist HPI HPI Comments History of Present Illness Details 34-year-old female with generalized anxiety disorder, acne, functional chronic diarrhea, family hx of breast ca, family hx of BRCA + (Mom) Surgery: plastic surgery R eye as child 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 She was generalized anxiety disorder and is maintained on bupropion and buspirone. Is taking the buspirone 15 mg once daily. Takes he 7.5 mg as needed for breakthrough anxiety. She reports that she uses the breakthrough dose sparingly. She reports that overall her symptoms are well controlled but reports worsening of her symptoms during the time of her period. She reports increased anxiety (sense of doom, negative self image, fussy ). All of the symptoms go back to baseline after she was done with her menses. She denies any SI or HI. She has found the vitamin-D supplementation to be quite helpful as well Cont to feel shaky after taking meds in AM. short lived,no worse. Has some word dropping, again, no worse; not bothersome In regards to the GERD like symptoms, chronic sore throat and phlegm in her posterior throat, at the last office visit she was started on nasal ipratropium and omeprazole. She took omeprazole daily for 4 weeks. Last dose was last night. She does report improvement in her acid reflux symptoms. She modified her diet at 1st to avoid things coffee, etoh and acidic things. She has resumed coffee and etoh but cont to avoid things like tomotoes. She was asked to see if insurance is covered in [place] for ENTfor allergy testing (? food allergy) and to also consider scope for globus sensation. She has not done this yet, but will. Physical Exam General: Awake, alert. No apparent distress Pharynx: normal Cardiovascular: Regular rate and rhythm Respiratory: Clear to auscultation bilaterally Psych: mood and affect appropriate Plan: - Continue current buspirone and bupropion. Consider taking buspirone 7.5 mg preceding your menstrual anxiety, Cont w/ counseling & Vitamin D. - Cont to take Omeprazole at this time, trial stopping after return from vacation. Avoid dietary triggers. - ConsiderENT referral for suspected food sensitivities contributing to reported nausea/vomiting episodes after consumption of sugary alcoholic beverages. Check with insurance to see about coverage in [place]. RTO end of January CPE, sooner PRN Total time spent caring for the patient today was 30 minutes. This includes time spent before the visit reviewing the chart, time spent during the visit, and time spent after the visit on documentation This note is constructed using voice recognition software. While every effort has been made to ensure accuracy in concession supervisor, still errors may have been included Sometimes, these errors may affect the content or meaning of the given sentence . [facility] Medical History (Updated 09/08/24 @ 11:07 by Dinah Moulton, [facility]) Annual physical exam Anxiety Normal Pap smear Palpitations Family History Mother Mental health disorder Maternal Aunt Mental health disorder Maternal Uncle Mental health disorder Social History Housing: House Alcohol intake: current Patient Tobacco Use Status: Never used Tobacco e-Cigarette/Vaping Use: Never Used Second Hand Smoke Exposure: No service: No Current occupational status: employed and student Current occupation: [employer] Current occupational exposures/hazards: No Cognitive needs: No Hearing needs: No Vision needs: No Questionnaire Thrive Questionnaire Date Thrive assessed: 09/08/24 I am a: Patient What is your living situation today?: I have a steady place to live Within the past 12 months, did the food you bought not last and you didn't have the money to get more?: Never true Within the past 12 months, did you worry whether your food would run out before you got money to buy more?: Never true Do you have trouble paying for medicines?: No Do you have trouble getting transportation to medical appointments?: No Do you have trouble paying your heating and electricity bill?: No Do you have trouble taking care of your child, family member or friend?: No Do you have trouble with day-to-day activities such as bathing, preparing meals, shopping, managing finances, etc.?: No Are you currently unemployed and looking for a job?: Yes Are you interested in more education?: No Please select the resources that you would like help with: None Currently or been in a relationship where the following occur: I choose not to answer THRIVE Score: 0 ANANT-7 AMB Questionnaire ANANT-7 Date ANANT - 7 assessed: 09/08/24 Source: Developed by Drs. Nico Marmolejo, Oralia Botello, Pierce Alvarez and colleagues, with an educational stacia from [employer]. Physical exam (Primary Care) Vital Signs: Last Vital Signs Temp 97.6 F 10/11/24 13:12 Pulse 84 10/11/24 13:12 Resp 12 10/11/24 13:12 BP 102/67 10/11/24 13:12 Pulse Ox 98 10/11/24 13:12 Oxygen Delivery Method Room Air 04/07/25 13:12 BMI result Body Mass Index 28.2 Tobacco/Smoking Status: Tobacco use Status Tobacco use date assessed 10/11/24 10/11/24 13:14 Patient Tobacco Use Status Never used Tobacco 10/11/24 13:10 e-Cigarette/Vaping Use Never Used 10/11/24 13:10 Thrive Assessment: Date of Thrive Assessment Date Thrive assessed 09/08/24 10/11/24 13:10 Currently or been in a relationship where the following occur: I choose not to answer Coding Level of Care Code Est Pt Level 4 (66220) Complex EM visit Add On G2211 Diagnoses ANANT (generalized anxiety disorder) F41.1 Gastroesophageal reflux disease with esophagitis without hemorrhage K21.00 Esophagitis bleeding: without hemorrhage Pharyngitis, unspecified etiology J02.9 Pharyngitis/tonsillitis etiology: unspecified etiology Post-nasal drip R09.82 Seasonal affective disorder F33.8 Nausea and vomiting, unspecified vomiting type R11.2 Vomiting type: unspecified Nausea presence: with nausea Assessment & Plan Assessment & Plan (1) ANANT (generalized anxiety disorder): Comment: ACTIVE W/ THERAPIST Code(s): F41.1 - Generalized anxiety disorder Category: Medical (2) GERD with esophagitis: Code(s): K21.00 - Gastro-esophageal reflux disease with esophagitis, without bleeding Category: Medical Qualifiers: Esophagitis bleeding: without hemorrhage Qualified Code(s): K21.00 - Gastro-esophageal reflux disease with esophagitis, without bleeding (3) Pharyngitis: Code(s): J02.9 - Acute pharyngitis, unspecified Category: Medical Qualifiers: Pharyngitis/tonsillitis etiology: unspecified etiology Qualified Code(s): J02.9 - Acute pharyngitis, unspecified (4) Post-nasal drip: Code(s): R09.82 - Postnasal drip Category: Medical (5) Seasonal affective disorder: Code(s): F33.8 - Other recurrent depressive disorders Category: Medical (6) Vomiting: Code(s): R11.10 - Vomiting, unspecified Category: Medical Qualifiers: Vomiting type: unspecified Nausea presence: with nausea Qualified Code(s): R11.2 - Nausea with vomiting, unspecified Plan . Medications: Refilled omeprazole 20 mg PO DAILY 90 caps 1RF Discontinued ipratropium bromide administer into each nostril Discontinued Reason: Patient Completed Course 2 sprays intranasal BID 30 mL 1RF
[2024-10-11 13:12] VITALS: BP 102/67; PULSE 84; RESP 12; TEMP 36.4; O2SAT 98; BMI 28.2
== END 2024-10-11 13:47 | disposition home or self-care (01) ==
LOC: HO.HMCFM 13:08
PROVIDERS: PCP Nurse Practitioner Family; Visit Provider Nurse Practitioner Family
DX: F41.1 Generalized anxiety disorder (principal); K21.00 Gastro-esophageal reflux disease with esophagitis, without bleeding; J02.9 Acute pharyngitis, unspecified; R09.82 Postnasal drip; F33.8 Other recurrent depressive disorders; R11.2 Nausea with vomiting, unspecified

== ENCOUNTER → 2024-10-11 13:07 | Outpatient (BNVA) | payer OTHER, SELFPAY | PROVIDERS: PCP Nurse Practitioner Family; Visit Provider Nurse Practitioner Family | DX: K59.1 Functional diarrhea (principal); F41.1 Generalized anxiety disorder; F33.8 Other recurrent depressive disorders; K21.00 Gastro-esophageal reflux disease with esophagitis, without bleeding; J02.9 Acute pharyngitis, unspecified; R09.82 Postnasal drip; R11.2 Nausea with vomiting, unspecified | CPT/HCPCS: 99212 ==

== ENCOUNTER 2025-03-28 10:31 | Outpatient (AMB) | payer OTHER, SELFPAY ==
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
[2025-03-28 10:38] VITALS: BP 118/66; PULSE 72; RESP 12; TEMP 36.2; O2SAT 99; BMI 27.8
--- OUTSIDE RECORDS SUMMARY | 2025-03-28 12:54 | XMS_ITS | Clinical Summary ---
Author Organization [facility] Address [address] [place] [address] Phone Care Team Providers Care Electrical Apprentice Name Role Phone Vladislav Carreon MD Primary Care Provider Allergies No known active allergies Medications copper (PARAGARD) 380 square mm intrauterine device 1 Device by Intrauterine route Once every 10 years. Active buPROPion (WELLBUTRIN XL) 150 MG ER 24 hr tablet Take 150 mg by mouth every morning. 2 Active buPROPion (WELLBUTRIN XL) 300 MG ER 24 hr tablet Take 300 mg by mouth every morning. 4 Active busPIRone (BUSPAR) 7.5 MG tablet 7.5 mg. 4 Active Active Problems Problem Noted Date Diagnosed Date Family history of breast cancer 10/29/2021 Overview (10/29/2021): Maternal aunt and maternal great-grandmother Mother may have had BRCA screening or has seen a book trimmer Assessment & Plan (10/29/2021 2:40 PM EDT): Recommend finding out from her mother what if any genetic screening she had; if mother tested negative for BRCA no need for extra concern Start mammograms age 42 pending any other information Encounter for contraceptive management 8 Overview (05/13/2018): Wants hormone free sundar due to low libido on Nuvaring Assessment & Plan (05/13/2018 1:01 PM EST): Paragard placed after discussion Immunizations Immunization Administration Dates Next Due Influenza Quadrivalent MDCK Preservative Free IM 06/24/2022 Family History Medical History Relation Comments No Known Problems Brother 1 No Known Problems Brother 2 No Known Problems Brother 3 Hypertension Father Breast cancer Maternal Aunt Breast cancer Maternal Great-Grandmother Hypertension Mother Breast cancer Paternal Grandmother Relation Status Comments Brother 1 Alive Brother 2 Alive Brother 3 Alive Father Alive Maternal Aunt Alive Maternal Great-Grandmother Alive Mother Alive Paternal Grandmother Alive Social History Tobacco Use Types Packs/Day Years Used Date Smoking Tobacco: Never Passive Smoke Exposure: Never Smokeless Tobacco: Never Tobacco Cessation:Counseling Given: Not Answered Alcohol Use Standard Drinks/Week Comments Yes 3 (1 standard drink = 0.6 oz pur e alcohol) Education Answer Date Recorded Are you interested in more education? Not on char[place] e 11/01/2022 Are you concerned about learning? Not on file 11/01/2022 No 11/01/2022 No 11/01/2022 Digital Access Answer Date Recorded No 11/29/2022 No 11/29/2022 Reliable internet access at home? Not on file 11/29/2022 Device with a working camera? 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 Not on file Not on file Not on file Last Filed Vital Signs Vital Sign Reading Time Taken Comments Blood Pressure 100/70 02/18/2024 8:24 AM EDT Pulse - - Temperature - - Respiratory Rate - - Oxygen Saturation - - Inhaled Oxygen Concentration - - Weight 74.4 kg (164 lb) 02/18/2024 8:24 AM EDT Height 166.4 cm (5' 5.5 ) 02/18/2024 8:24 AM EDT Body Mass Index 26.88 02/18/2024 8:24 AM EDT Plan of Treatment Health Maintenance Due Date Last Done Comments DEPRESSION SCREENING 2004 HEPATITIS C SCREENING 2010 HIV ONE-TIME SCREENING (18-65 YEARS) 2010 INFLUENZA VACCINE (#1) 2025 06/24/2022 COVID-19 VACCINE ( season) 2025 06/24/2022, 07/10/2021, 11/20/2020, Additional history exists IUD 05/13/2028 05/13/2018 PAP SMEAR 02/17/2029 02/18/2024, 10/06, 05/16/2015, Additional history exists Adult Td,Tdap Booster 01/27/2034 01/28/2024 SMOKING STATUS SCREENING (Once After 26 Yrs) Completed 02/18/2024 HEPATITIS A VACCINES Aged Out No long er eligible based on patient's age to complete this topic HIB VACCINES Aged Out No longer eligi ble based on patient's age to complete this topic MENINGOCOCCAL VACCINES (ACWY) Aged Out No longer eligible based on patient's age to complete this topic MENINGOCOCCAL VACCINES (B) Aged Out N o longer eligible based on patient's age to complete this topic PNEUMOCOCCAL VACCINES (0-49 years) Aged Out No longer eligible based on patient's age to complete this topic Medical Devices Not on file Procedures Procedure Name Priority Date/Time Associated Diagnosis Comments PAP TEST Routine 02/18/2024 12:00 AM EDT from Last 3 Months or Most Recently Relevant to Health Maintenance Results * Pap Test (02/18/2024 12:00 AM EDT) 02/18/2024 02/19/2024 9:0 8 AM EDT Narrative SEE NARRATIVE - 02/25/2024 10:39 AM EDT [address] [address] Tube Puller: Linda Hess MD [employer]PER[employer] Cytology Report FINAL DIAGNOSIS A. PAP SMEAR (THIN PREP) CE: SPECIMEN ADEQUACY: Satisfactory for evaluation; transformation zone present. INTERPRETATION: NEGATIVE FOR INTRAEPITHELIAL LESION OR MALIGNANCY. This specimen was analyzed by the automated ThinPrep Imaging System ([employer] and manually rescreened by a horse race timer and/or pathologist. Electronically Signed Out By: SHERIN Campos(ASCP) SHERIN Sanchez(ASCP) The Pap test is a screening test primarily for squamous cancers and precursors and has associated false-negative and false-positive results. New technologies such as liquid-based preparations may decrease but will not eliminate all false-negative results. Regular sampling and follow-up of unexplained clinical signs and symptoms are recommended to minimize false negative results. PROCEDURES/ADDENDA HPV Testing (Requested) Ordered Date: 02/19/2024 A. PAP SMEAR (THIN PREP) CE: Human Papilloma Virus Test NEGATIVE for high-risk Human Papilloma Virus types 16, 18, 45 and the Other high risk probe set (Includes 31, 33, 35, 39, 51, 52, 56, 58, 59, 66, 68) Note: Testing performed by [employer] HR-HPV analysis. Clinical correlation is advised. This HPV test was performed at [facility], [address] [place] [address]. This test has been FDA approved for both SurePath and ThinPrep cervical cytology specimens. The accuracy and precision of this test for all other specimen sources has been verified in the Cytopathology Laboratory of the [facility] and has not been cleared or approved by the U.S. Food and Drug Administration. Clinical correlation is advised. CLINICAL HISTORY Date of Last Menstrual Period: 02-18-2024 Contraceptive History: IUD Other Clinical Conditions: Screening Pap SPECIMEN SOURCE A: PAP SMEAR (THIN PREP) CE Patient Name: TATIANA SUTHERLAND : 1990 (Age: 33) Sex: F Institution: [facility] Location: [facility] Date of Collection: 02/18/2024 Date of Reported: 02/25/2024 10:39 Results to: Tanya Wilson MD Tanya Wilson MD CYTOLOGY ORDERABLES Final Result SEE NARRATIVE from Last 3 Months or Most Recently Relevant to Health Maintenance Insurance * Guarantor: Tatiana Sutherland Account Type Relation to Patient Date of Phone Billing Address Personal/Family Self 1990 [address] [place] [address] [employer] FULL Member Subscriber Plan / Payer (Ef fective 2023-Present) Name:Tatiana Sutherland Relation to Subscriber:Self Name:Tatiana Sutherland Payer ID:Not on file Group ID:Not on file Type:Medicaid [address] PCP [employer] * Guarantor: Tatiana Sutherland Account Type Relation to Patient Date of Phone Billing Address Personal/Family Self 1990 [address] [place] [address] [employer] NET FULL ERSKINEENSE NON NSPG PCP [employer] * Guarantor: Tatiana Sutherland Account Type Relation to Patient Date of Phone Billing Address Personal/Family Self 1990 [address] [place] [address] HEALTH SAFETY NET FULL WELLSENSE NON NSPG PCP [employer] [address] [place] [employer] NET FULL WELLSENSE NON NSPG PCP [employer] 27 07/08 [place] HEALTH SAFETY NET FULL WELLSENSE NON NSPG PCP [employer] 27 07/08 [place] HEALTH SAFETY NET FULL WELLSENSE NON NSPG PCP [employer] 07/08 [place], [place] 07/08 [place], [place] 07[address]08 [place] Care Teams Electrical Apprentice Relationship Specialty Start Date End Date Vladislav Carreon MD [address] [place] [id number] PCP - General 07/10/17 Additional Source Comments The information contained in this document represents components of the legal health record. It is not the complete legal health record.[facility]
== END 2025-03-28 11:14 | disposition home or self-care (01) ==
PROVIDERS: PCP Nurse Practitioner Family; Visit Provider Nurse Practitioner Family
DX: Z23 Encounter for immunization (principal); F41.1 Generalized anxiety disorder; F33.8 Other recurrent depressive disorders; R09.82 Postnasal drip; K21.00 Gastro-esophageal reflux disease with esophagitis, without bleeding; H53.143 Visual discomfort, bilateral

== ENCOUNTER → 2025-03-28 10:31 | Outpatient (BNVA) | payer OTHER, SELFPAY | PROVIDERS: PCP Nurse Practitioner Family; Visit Provider Nurse Practitioner Family | DX: F41.1 Generalized anxiety disorder (principal); F33.8 Other recurrent depressive disorders; R09.82 Postnasal drip; K21.00 Gastro-esophageal reflux disease with esophagitis, without bleeding; H53.143 Visual discomfort, bilateral; Z23 Encounter for immunization | CPT/HCPCS: 90471; 90656; 99212 ==